=== PATIENT | male | born 1955 | race Caucasian/White ===

== ENCOUNTER 2019-05-09 18:11 | Inpatient (IN) | payer OTHER ==
[2019-05-09] MEDS ORDERED: ACETAMINOPHEN TAB 500 MG TAB PO STA (18:49)
[2019-05-09] MEDS ORDERED: KETOROLAC 30 MG/ML 1 ML VIAL IVP STA (18:49)
[2019-05-09] MEDS ORDERED: SODIUM CHLORIDE 0.9% 1,000 ML IV ONE (18:49)
[2019-05-09] MEDS ORDERED: LIDOCAINE 1% INJ 10MG/ML (20 ML MDV) SQ ONE (18:50)
--- NOTE | 2019-05-09 18:57 | ED ---
Skin/Abscess/FB HPI - General Chief complaint: Skin/Abscess/Foreign Body Stated complaint: Hand swollen Time Seen by Provider: 05/09/19 18:38 Source: patient Mode of arrival: ambulatory Limitations: no limitations - History of Present Illness Initial comments: 63-year-old male patient presents to the emergency department today for evaluation of infection and abscess to the left hand. Patient states 2 days ago he had a small white pimple on the dorsal aspect of his left middle finger. Patient states that he popped it and squeezed out a small amount of pus. Patient states the next day the hand swelled up, turned red, and became very painful. Denies any known fever or chills. States that today the redness has increased to include his left wrist. He denies any history of similar symptoms. States he does have diabetes but he controls this with diet. Denies any other areas of infection. Denies any difficulty with range of motion of the hand. Patient denies any recent rash, shortness breath, chest pain, abdominal pain, nausea, vomiting, diarrhea, constipation, back pain, numbness, tingling, dizziness, weakness, hematuria, dysuria, urinary urgency, urinary frequency, headache, visual changes, or any other complaints. - Related Data Allergies Allergy/AdvReac Type Severity Reaction Status Date / Time No Known Allergies Allergy Verified 05/09/19 18:19 Review of Systems ROS Statement: Those systems with pertinent positive or pertinent negative responses have been documented in the HPI. ROS Other: All systems not noted in ROS Statement are negative. Past Medical History Past Medical History: Diabetes Mellitus History of Any Multi-Drug Resistant Organisms: None Reported Past Surgical History: No Surgical Hx Reported Past Psychological History: No Psychological Hx Reported Smoking Status: Former smoker Past Alcohol Use History: Occasional Past Drug Use History: None Reported General Exam Limitations: no limitations General appearance: alert, in no apparent distress, other (This is a well- developed, well-nourished adult male patient in no acute distress. Vital signs upon presentation are temperature 100.2F oral, pulse 127, respirations 22, blood pressure 168/95, pulse ox 97% on room air.) Eye exam: Present: normal appearance, PERRL, EOMI. Absent: scleral icterus, conjunctival injection, periorbital swelling ENT exam: Present: normal exam, normal oropharynx, mucous membranes moist Respiratory exam: Present: normal lung sounds bilaterally. Absent: respiratory distress, wheezes, rales, rhonchi, stridor Cardiovascular Exam: Present: normal rhythm, tachycardia, normal heart sounds. Absent: systolic murmur, diastolic murmur, rubs, gallop, clicks GI/Abdominal exam: Present: soft, normal bowel sounds. Absent: distended, tenderness, guarding, rebound, rigid Extremities exam: Present: full ROM, tenderness (proximal aspect of the left middle finger), normal capillary refill, other (There is soft tissue swelling, erythema noted over the dorsal aspect of the left hand extending up onto the wr ist. There does appear to be streaking to about midway along the radial aspect of the forearm). Absent: pedal edema, joint swelling, calf tenderness Neurological exam: Present: alert, oriented X3, CN II-XII intact Psychiatric exam: Present: normal affect, normal mood Skin exam: Present: warm, dry, intact, normal color. Absent: rash Course Vital Signs 05/09/19 05/09/19 18:16 19:00 Temperature 98.4 F 100.2 F H Pulse Rate 127 H Respiratory 22 Rate Blood Pressure 168/95 O2 Sat by Pulse 97 Oximetry Procedures - Incision & Drainage Consent Obtained: verbal consent Indication: abcess Site: hand (Left middle finger) Size (cm): 2 Anesthetic Used: lidocaine 1% Amount (mLs): 1 I&D Cleaning Method: Betadine Scalpel Used: #11 I&D Drainage Obtained: Pus, Blood Culture Obtained?: Yes Patient Tolerated Procedure: well, no complications Medical Decision Making - Medical Decision Making 63-year-old male patient presents to the emergency department today for evaluation of abscess and swelling of the left hand. Physical examination reveals a 2 cm abscess to the left middle finger with significant soft tissue swelling, cellulitis over the dorsal hand and wrist with streaking up the arm. He is febrile 100.2F oral. White blood cell count was normal. Lactic acid elevated at 2.8. Patient's blood sugar elevated at 434. Did perform incision and drainage of the left finger, I did culture purulent drainage. X-ray was negative for evidence of osteomyelitis. Patient states he is able to control his diabetes with diet, does not currently take medications. Given severity of infection, location of infection, and elevated sugar we will admit to the hospital for IV antibiotics and blood sugar management. - Lab Data Result diagrams: 12/25/19 19:00 05/09/19 19:00 Lab Results 05/09/19 05/09/19 05/09/19 Range/Units 19:00 19:00 19:00 WBC 8.7 (3.8-10.6) k/uL RBC 4.83 (4.30-5.90) m/uL Hgb 15.0 (13.0-17.5) gm/dL Hct 44.2 (39.0-53.0) % MCV 91.5 (80.0-100.0) fL MCH 31.1 (25.0-35.0) pg MCHC 34.0 (31.0-37.0) g/dL RDW 12.9 (11.5-15.5) % Plt Count 190 (150-450) k/uL Neutrophils % 77 % Lymphocytes % 13 % Monocytes % 6 % Eosinophils % 2 % Basophils % 1 % Neutrophils # 6.7 (1.3-7.7) k/uL Lymphocytes # 1.1 (1.0-4.8) k/uL Monocytes # 0.5 (0-1.0) k/uL Eosinophils # 0.2 (0-0.7) k/uL Basophils # 0.1 (0-0.2) k/uL Sodium 137 (137-145) mmol/L Potassium 4.0 (3.5-5.1) mmol/L Chloride 100 (98-107) mmol/L Carbon Dioxide 22 (22-30) mmol/L Anion Gap 15 mmol/L BUN 15 (9-20) mg/dL Creatinine 0.84 (0.66-1.25) mg/dL Est GFR (CKD-EPI)AfAm >90 (>60 ml/min/1.73 sqM) Est GFR (CKD-EPI)NonAf >90 (>60 ml/min/1.73 sqM) Glucose 431 H (74-99) mg/dL Plasma Lactic Acid Jarett 2.8 H* (0.7-2.0) mmol/L Calcium 10.2 (8.4-10.2) mg/dL Total Bilirubin 0.7 (0.2-1.3) mg/dL AST 17 (17-59) U/L ALT 17 (4-49) U/L Alkaline Phosphatase 115 (38-126) U/L Total Protein 7.2 (6.3-8.2) g/dL Albumin 4.5 (3.5-5.0) g/dL - Radiology Data Radiology results: report reviewed, image reviewed 3 Views of the left hand are obtained. Impression by Dr. Nieto shows soft tissue swelling. No fracture. No sign of osteomyelitis. Linear metallic 3 mm foreign body noted adjacent to the first metacarpal. Disposition Clinical Impression: Cellulitis of left hand, Abscess of left middle finger Disposition: ADMITTED IP TO THIS [facility] Condition: Serious Referrals: None,Stated [Primary Care Provider] - 1-2 days Decision to Admit Reason: Admit from EC Decision Date: 05/09/19 Decision Time: 21:07
[2019-05-09] MEDS ORDERED: CLINDAMYCIN 600 MG in DEXTROSE 5% IN WATER 50 ML IVPB STA ×2 (19:13)
[2019-05-09 19:31] LABS: Basophils # (A) 0.1 k/uL (0-0.2); Basophils % (A) 1 %; Eosinophils # (A) 0.2 k/uL (0-0.7); Eosinophils % (A) 2 %; HCT 44.2 % (39.0-53.0); Lymphocytes # (A) 1.1 k/uL (1.0-4.8); Lymphocytes % (A) 13 %; MCH 31.1 pg (25.0-35.0); MCV 91.5 fL (80.0-100.0); Mean Platelet Volume 8.2; Monocytes # (A) 0.5 k/uL (0-1.0); Monocytes % (A) 6 %; Neutrophils # (A) 6.7 k/uL (1.3-7.7); Neutrophils % (A) 77 %; Platelet Count 190 k/uL (150-450); RBC 4.83 m/uL (4.30-5.90); RDW 12.9 % (11.5-15.5); WBC 8.7 k/uL (3.8-10.6)
--- NOTE | 2019-05-09 19:40 | XR ---
EXAMINATION TYPE: XR hand complete LT DATE OF EXAM: 05/09/2019 COMPARISON: NONE HISTORY: Middle finger infection TECHNIQUE: 3 views FINDINGS: There is soft tissue swelling around the index finger and middle finger. There is also mini mal swelling of the ring finger. I see no fracture nor dislocation. There is soft tissue swelling on the dorsum of the hand. I see no focal bone destruction. IMPRESSION: Soft tissue swelling. No fracture. No sign of osteomyelitis. Linear metallic 3 mm foreign body noted adjacent to the first metacarpal.
[2019-05-09 19:44] LABS: ALT 17 U/L (4-49); AST 17 U/L (17-59); African American GFR (CKD) >90 (>60 ml/min/1.73 sqM); Albumin 4.5 g/dL (3.5-5.0); Alkaline Phosphatase 115 U/L (38-126); Anion Gap 15 mmol/L; Blood Urea Nitrogen 15 mg/dL (9-20); Calcium 10.2 mg/dL (8.4-10.2); Carbon Dioxide 22 mmol/L (22-30); Chloride 100 mmol/L (98-107); Glucose 431 mg/dL (74-99); Non-African American GFR(CKD) >90 (>60 ml/min/1.73 sqM); Sodium 137 mmol/L (137-145); Total Bilirubin 0.7 mg/dL (0.2-1.3); Total Protein 7.2 g/dL (6.3-8.2)
[2019-05-09] MEDS ORDERED: SODIUM CHLORIDE 0.9% 500 ML 500 ML IV ONE (19:57)
[2019-05-09] MEDS ORDERED: INSULIN ASPART (NovoLOG) 100 UNIT/ML VIAL SQ STA (19:57)
[2019-05-09] MEDS ORDERED: ACETAMINOPHEN TAB 325 MG TAB PO PRN (21:02)
[2019-05-09] MEDS ORDERED: NALOXONE 0.4 MG/ML 1 ML VIAL IV PRN (21:02)
[2019-05-09] MEDS: SODIUM CHLORIDE 0.9% 1,000 ML IV SCH (22:40)
[2019-05-10] MEDS: CLINDAMYCIN 600 MG in DEXTROSE 5% IN WATER 50 ML IVPB SCH ×4 (02:59→11:55)
[2019-05-10 06:55] LABS: Glucose,Whole Blood 250 mg/dL (75-99)
[2019-05-10 07:41] LABS: Basophils # (A) 0.1 k/uL (0-0.2); Basophils % (A) 1 %; Eosinophils # (A) 0.2 k/uL (0-0.7); Eosinophils % (A) 3 %; Lymphocytes % (A) 16 %; MCH 30.2 pg (25.0-35.0); MCHC 32.6 g/dL (31.0-37.0); MCV 92.6 fL (80.0-100.0); Mean Platelet Volume 7.9; Monocytes # (A) 0.5 k/uL (0-1.0); Monocytes % (A) 7 %; Neutrophils # (A) 4.5 k/uL (1.3-7.7); Neutrophils % (A) 71 %; Platelet Count 163 k/uL (150-450); RBC 4.65 m/uL (4.30-5.90); WBC 6.4 k/uL (3.8-10.6)
[2019-05-10] MEDS: KETOROLAC 30 MG/ML 1 ML VIAL IVP PRN ×2 (08:10→16:26)
[2019-05-10] MEDS: INSULIN ASPART (NovoLOG) 100 UNIT/ML VIAL SQ SCH ×4 (08:10→20:45)
[2019-05-10] MEDS: SODIUM CHLORIDE 0.9% 1,000 ML IV SCH (10:18)
[2019-05-10 11:12] LABS: Glucose,Whole Blood 259 mg/dL (75-99)
[2019-05-10] MEDS ORDERED: VANCOMYCIN IV PER PHARMACY 1 EACH MISC MISCELLANE PRN (12:50)
[2019-05-10] MEDS ORDERED: VANCOMYCIN 1,750 MG in SODIUM CHLORIDE 0.9% 500 ML 500 ML IVPB ONE (14:00)
--- NOTE | 2019-05-10 15:40 | P.HPIM ---
History of Present Illness 63-year-old is negative and was department with infection of the left hand the left middle finger. Patient has a wound on ulcer in that area with pus draining out of it and patient had fever reaching the left forearm yesterday patient has significant swelling in the left hand with redness local is of temperature in the left middle finger. Patient had x-ray which showed x-ray of the left hand showed an incidental finding of a 3 mm metallic linear fragment and the first metatarsal area but the patient's infection is in the middle finger. I cannot completely rule out abscess because of which I'm consulting the orthopedic surg elías. Patient's antiemetics will be switched from clindamycin to vancomycin infectious disease will be consulted as well. Patient is complaining of pain severe the abscess site area Review of Systems REVIEW OF SYSTEMS: CONSTITUTIONAL: No fever, no malaise, no fatigue. HEENT: No recent visual problems or hearing problems. Denied any sore throat. CARDIOVASCULAR: No chest pain, orthopnea, PND, no palpitations, no syncope. PULMONARY: No shortness of breath, no cough, no hemoptysis. GASTROINTESTINAL: No diarrhea, no nausea, no vomiting, no abdominal pain. NEUROLOGICAL: No headaches, no weakness, no numbness. HEMATOLOGICAL: Denies any bleeding or petechiae. GENITOURINARY: Denies any burning micturition, frequency, or urgency. MUSCULOSKELETAL/RHEUMATOLOGICAL: As mentioned in the history ENDOCRINE: Denies any polyuria or polydipsia. The rest of the 14-point review of systems is negative. Past Medical History Past Medical History: Diabetes Mellitus History of Any Multi-Drug Resistant Organisms: None Reported Past Surgical History: Joint Replacement Past Anesthesia/Blood Transfusion Reactions: No Reported Reaction Past Psychological History: No Psychological Hx Reported Smoking Status: Former smoker Past Alcohol Use History: Occasional Past Drug Use History: None Reported - Past Family History Mother Family Medical History: Diabetes Mellitus, Hypertension Father Family Medical History: Diabetes Mellitus, Hypertension Medications and Allergies Home Medications Medication Instructions Recorded Confirmed Type Nicotine Polacrilex [Nicorette] 2 mg BC Q2H PRN 05/09/19 05/09/19 History Allergies Allergy/AdvReac Type Severity Reaction Status Date / Time No Known Allergies Allergy Verified 05/09/19 21:53 Physical Exam Vitals: Vital Signs Temp Pulse Pulse Resp BP BP Pulse Ox 05/10/19 14:28 97.6 F 97 17 191/109 98 05/10/19 07:00 97.6 F 69 17 169/78 94 L 05/10/19 03:03 98.7 F 106 H 18 145/79 96 05/09/19 22:30 118 H 05/09/19 22:02 98.3 F 118 H 18 159/91 97 05/09/19 21:48 97.7 F 05/09/19 21:44 113 H 20 159/85 93 L 05/09/19 19:00 100.2 F H 05/09/19 18:16 98.4 F 127 H 22 168/95 97 Intake and Output 05/10/19 05/10/19 05/10/19 06:59 14:59 22:59 Intake Total 650 Balance 650 Intake: Intake, IV Titration 650 Amount Clindamycin 600 mg In 50 Dextrose 5% in Water 50 ml @ 50 mls/hr IVPB Q8H MAURICIO Rx#:[id number] Sodium Chloride 0.9% 1, 600 000 ml @ 75 mls/hr IV . [id number] MAURICIO Rx#:[id number] Other: # Voids 2 3 PHYSICAL EXAMINATION: GENERAL: The patient is alert and oriented x3, not in any acute distress. Well developed, well nourished. HEENT: Pupils are round and equally reacting to light. EOMI. No scleral icterus. No conjunctival pallor. Normocephalic, atraumatic. No pharyngeal erythema. No thyromegaly. CARDIOVASCULAR: S1 and S2 present. No murmurs, rubs, or gallops. PULMONARY: Chest is clear to auscultation, no wheezing or crackles. ABDOMEN: Soft, nontender, nondistended, normoactive bowel sounds. No palpable organomegaly. MUSCULOSKELETAL: No joint swelling or deformity. EXTREMITIES: No cyanosis, clubbing, or pedal edema. Patient has a swelling of the left hand significant swelling of the left middle finger with an ulcer that was noted in between first and second interphalangeal joints I cannot rule out abscess. I did not see any streaking today but apparently this was present yesterday. NEUROLOGICAL: Gross neurological examination did not reveal any focal deficits. SKIN: No rashes. Results CBC & Chem 7: 05/10/19 07:18 12/25/19 19:00 Labs: Abnormal Lab Results - Last 24 Hours (Table) 05/09/19 05/09/19 05/10/19 Range/Units 19:00 19:00 06:52 Glucose 431 H (74-99) mg/dL POC Glucose (mg/dL) 250 H (75-99) mg/dL Plasma Lactic Acid Jarett 2.8 H* (0.7-2.0) mmol/L 05/10/19 Range/Units 11:10 Glucose (74-99) mg/dL POC Glucose (mg/dL) 259 H (75-99) mg/dL Plasma Lactic Acid Jarett (0.7-2.0) mmol/L Microbiology - Last 24 Hours (Table) 05/09/19 19:20 Gram Stain - Preliminary Hand - Left Wound Culture - Preliminary 05/09/19 20:00 Gram Stain - Preliminary Hand - Left Wound Culture - Preliminary Thrombosis Risk Factor Assmnt - Choose All That Apply Any of the Below Risk Factors Present?: Yes Each Factor Represents 1 point: Obesity (BMI >25) Other Risk Factors: Yes Each Risk Factor Represents 2 Points: Age 61-74 years Other congenital or acquired thrombophilia - If yes, enter type in comment: No Thrombosis Risk Factor Assessment Total Risk Factor Score: 3 Thrombosis Risk Factor Assessment Level: Moderate Risk Assessment and Plan Plan: -Cellulitis and abscess of the left hand middle finger: Patient will be switched to vancomycin IV fluids will be continued use Toradol for pain -Sepsis secondary to above -Elevated blood sugars patient is not on any medications for diabetes we'll obtain hemoglobin A1c will use sliding scale here
--- NOTE | 2019-05-10 16:38 | P.CNOR ---
<Ashlyn Linda Diamond - Last Filed: 05/10/19 16:39> History of Present Illness - HPI Consult date: 05/10/19 Consult reason: other (Left middle finger infection) History of present illness: The patient is a 63-year-old male who presented to the emergency department last night with increased swelling and redness to the left middle finger. He has a history of diet controlled diabetes and is a former smoker. He states that on Tuesday night he popped a pimple on the same finger. The pimple was on the dorsal aspect of the left middle finger at the proximal phalanx level. The next morning he noticed increased redness and swelling to the finger around the pimple site and he noticed increased redness going up his hand into his forearm. The patient states he was not feeling ill but did have a fever upon coming to the ER last night. The redness and swelling continued and he went to the emergency department for further evaluation. In the ER, the patient's finger was opened at the bedside and a culture was taken. He was admitted for IV an tibiotics and further evaluation by orthopedic hand surgery. A consult for infectious disease is also entered. Today, the patient states that his pain is controlled. The finger is only painful when he attempts range of motion and pushes on the area directly. He does have limited range of motion due to swelling in the finger. The patient states that the finger has only mildly improved since admission yesterday. Cultures are pending and he is currently on Vancomycin. Review of Systems Constitutional: Reports fever, Denies chills, Denies fatigue Cardiovascular: Denies chest pain, Denies shortness of breath Respiratory: Denies cough Gastrointestinal: Denies diarrhea, Denies nausea, Denies vomiting Musculoskeletal: left: hand pain, hand stiffness, hand swelling Past Medical History Past Medical History: Diabetes Mellitus History of Any Multi-Drug Resistant Organisms: None Reported Past Surgical History: Joint Replacement Past Anesthesia/Blood Transfusion Reactions: No Reported Reaction Past Psychological History: No Psychological Hx Reported Smoking Status: Former smoker Past Alcohol Use History: Occasional Past Drug Use History: None Reported - Past Family History Mother Family Medical History: Diabetes Mellitus, Hypertension Father Family Medical History: Diabetes Mellitus, Hypertension Medications and Allergies Home Medications Medication Instructions Recorded Confirmed Type Nicotine Polacrilex [Nicorette] 2 mg BC Q2H PRN 05/09/19 05/09/19 History Allergies Allergy/AdvReac Type Severity Reaction Status Date / Time No Known Allergies Allergy Verified 05/09/19 21:53 Physical Examination The patient is a 63-year-old male who is in no acute distress. He is alert and oriented 3. Exam of the left hand reveals swelling and erythema to the left middle finger. There is swelling in the dorsal distal aspect of the hand but it does not extend further. No proximal red streaking is present. There is pain to palpation to the proximal phalanx level of the left middle finger. No tenderness along the flexor tendon sheath. No active drainage can be expressed from the dorsal wound at this time. There is limited range of motion of the PIP joint of the left little finger, 60 of passive flexion with full extension. Dupuytren's nodules are present in the palm of the hand, no contractures noted. No neurological deficits are present. Circulatory status is intact. Capillary refill less than 2 seconds. Results - Labs Labs: Abnormal Lab Results - Last 24 Hours (Table) 05/09/19 05/09/19 05/10/19 Range/Units 19:00 19:00 06:52 Glucose 431 H (74-99) mg/dL POC Glucose (mg/dL) 250 H (75-99) mg/dL Plasma Lactic Acid Jarett 2.8 H* (0.7-2.0) mmol/L 05/10/19 Range/Units 11:10 Glucose (74-99) mg/dL POC Glucose (mg/dL) 259 H (75-99) mg/dL Plasma Lactic Acid Jarett (0.7-2.0) mmol/L Microbiology - Last 24 Hours (Table) 05/09/19 19:20 Gram Stain - Preliminary Hand - Left Wound Culture - Preliminary 05/09/19 20:00 Gram Stain - Preliminary Hand - Left Wound Culture - Preliminary H & H 05/09/19 05/10/19 Range/Units 19:00 07:18 Hgb 15.0 14.0 (13.0-17.5) gm/dL Hct 44.2 43.0 (39.0-53.0) % Result Diagrams: 05/10/19 07:18 05/09/19 19:00 - Diagnostic results Wrist/Hand x-ray: image reviewed (2 views of the left hand dated 05/09/2019 reveals soft tissue swelling. No bony destruction or osteomyelitis present.) Assessment and Plan (1) Diabetes mellitus Current Visit: Yes Status: Acute Code(s): E11.9 - TYPE 2 DIABETES MELLITUS WITHOUT COMPLICATIONS SNOMED Code(s): 92549611 (2) Abscess of left middle finger Current Visit: Yes Status: Acute Code(s): L02.512 - CUTANEOUS ABSCESS OF LEFT HAND SNOMED Code(s): 45394085 (3) Cellulitis of left hand Current Visit: Yes Status: Acute Code(s): L03.114 - CELLULITIS OF LEFT UPPER LIMB SNOMED Code(s): 37438086 Plan: The clinical and diagnostic findings were discussed with the patient and family at the bedside. Continue pain control as needed. Continue vancomycin until seen by infectious disease. Await culture results. I encouraged gentle range of motion of the finger as tolerated to prevent stiffness. Further incision and drainage may be needed if the finger does not improve with IV antibiotics. The patient will be examined by Dr. Foster as well and further recommendations will follow. <Bhavesh Foster - Last Filed: 05/11/19 07:27> Results - Labs Labs: Abnormal Lab Results - Last 24 Hours (Table) 05/10/19 05/10/19 05/10/19 Range/Units 11:10 16:39 20:27 POC Glucose (mg/dL) 259 H 213 H 214 H (75-99) mg/dL Microbiology - Last 24 Hours (Table) 05/09/19 19:00 Blood Culture - Preliminary Blood No Growth after 24 hours 05/09/19 20:00 Gram Stain - Preliminary Hand - Left Wound Culture - Preliminary Presumptive Staph aureus 05/09/19 19:20 Gram Stain - Preliminary Hand - Left Wound Culture - Preliminary H & H 05/09/19 05/10/19 Range/Units 19:00 07:18 Hgb 15.0 14.0 (13.0-17.5) gm/dL Hct 44.2 43.0 (39.0-53.0) % Result Diagrams: 05/10/19 07:18 05/09/19 19:00 Assessment and Plan Plan: Discussed with BHANU Linda and agree with above. Patient was subsequently seen and examined by myself as well. S: He states that this began 2 days ago when he popped a pimple on the back of his finger. His reports that the finger progressively worsened, to the point where there was swelling and redness going up his arm. They feel that it has improved since admission. He says that there is not very much pain. O: Moderate focal edema over the middle phalanx of the left middle finger. This extends across the dorsum of the hand. The dorsal skin over the middle phalanx is friable with some small puncture wounds noted. Mild surrounding erythema. There is fullness in the subcutaneous tissues but no discrete pocket of fluctuance. Minimal tenderness to palpation. He is able to perform active flexion and extension with minimal discomfort, though his range of motion is limited due to the swelling. No tenderness along the flexor sheath or extensor tendon. A: 1. Left middle finger cellulitis 2. Uncontrolled diabetes mellitus P: I discussed the clinical findings in detail with the patient and his . We discussed a variety treatment options, including continued observation, bedside I&D versus formal surgical debridement. Based on its current appearance and his exam, I recommended a period of observation. We will begin dilute saline and Betadine soaks and I encouraged him to continue range of motion. If this fails to improve with IV antibiotics, we may consider debridement. NPO after midnight -I will reevaluate this in the morning. Bhavesh Foster D.O. [facility]
[2019-05-10 16:40] LABS: Glucose,Whole Blood 213 mg/dL (75-99)
[2019-05-10 20:29] LABS: Glucose,Whole Blood 214 mg/dL (75-99)
[2019-05-10] MEDS: FAMOTIDINE 20 MG TAB PO SCH (20:46)
[2019-05-11] MEDS: VANCOMYCIN 1,750 MG in SODIUM CHLORIDE 0.9% 500 ML 500 ML IVPB SCH ×4 (00:24→23:02)
[2019-05-11] MEDS: KETOROLAC 30 MG/ML 1 ML VIAL IVP PRN ×3 (03:00→23:01)
[2019-05-11] MEDS: SODIUM CHLORIDE 0.9% 1,000 ML IV SCH ×2 (03:10→15:05)
--- NOTE | 2019-05-11 06:12 | CONS ---
CONSULTATION DATE OF SERVICE: 05/10/2019 REASON FOR CONSULTATION: Left middle finger abscess and cellulitis. HISTORY OF PRESENT ILLNESS: The patient is a 63 -year-old male presenting to the ER at [facility] yesterday with chief complaints of left middle finger pain, swelling, redness along with the fever. The patient mentioned that he noticed a pimple on his left middle finger dorsum aspect that he tried to palpate on Tuesday. The next morning, that is May 08, he woke up and he did have significant swelling and redness of his left index finger. The patient tried to manage it at home. However, did have worsening pain, swelling, redness that prompted him to visit the hospital last evening. At the time of arrival to the ER, the patient was complaining of pain to be almost 10 out of 10 in severity, throbbing in nature and no radiation. The patient was complaining of fever and chills with a temperature of 101 degrees Fahrenheit at home. On arrival to the ER, the patient did have of 100.2. He did have slight tachycardia, though his white count was normal. The patient did have a attempt at I and D by the ER physician. Cultures had been obtained. Blood culture was obtained and the patient was started on vancomycin. Infectious Disease was consulted for further recommendation regarding antibiotic therapy. REVIEW OF SYSTEMS: CONSTITUTIONAL: Positive for weakness along with the fever. EYES: No complaint. ENT: No complaint. RESPIRATORY: No complaint. CARDIOVASCULAR: No complaint. GENITOURINARY: No complaint. GASTROINTESTINAL: No complaint. MUSCULOSKELETAL: As per HPI. INTEGUMENTARY: As per HPI. PSYCHOLOGICAL: No complaint. ENDOCRINE: No complaint. NEUROLOGIC: No complaint. PAST MEDICAL HISTORY: Diabetes mellitus. PAST SURGICAL HISTORY: Joint replacement. SOCIAL HISTORY: Remote history of smoking. Occasionally drinks. No drug use. FAMILY HISTORY: Both parents with a history of hypertension and diabetes mellitus. ALLERGIES: No known drug allergies. MEDICATIONS: Medications include the patient is currently on vancomycin 1750 mg q.8 hours. He is on IV fluids, Narcan, Toradol, NovoLog, Pepcid, and Tylenol. PHYSICAL EXAMINATION: On examination, blood pressure is 166/90 with a pulse of 90, temperature 97.7. He is 99% on room air. General description is a middle-aged male up in the bed in no distress. No tachypnea or accessory muscle of respiration use. HEENT: Examination shows no pallor or scleral icterus. Oral mucous membrane is moist. No pharyngeal erythema or thrush. NECK: Trachea central. No thyromegaly. LUNGS: Unlabored breathing, clear to auscultation anteriorly. No wheeze or crackle. HEART: S1, S2. Regular rate and rhythm. No added sounds. ABDOMEN: Soft, no tenderness. No rigidity, EXTREMITIES: No edema of feet. EXAMINATION OF THE LEFT HAND: Middle finger dorsum aspect did have an area of swelling and redness with some purulent drainage and warm to touch. NEUROLOGICAL: Patient is awake, alert, oriented x3. Mood and Affect normal. LABS: Hemoglobin is 14, white count 6.4 with a BUN of 15, creatinine 0.84. Lactic acid was 2.8, repeat is 1.2. Liver enzymes are normal. Wound culture reveals Staph aureus. Blood culture has been negative so far. DIAGNOSTIC IMPRESSION AND PLAN: Patient admitted to the hospital with left middle finger dorsum aspect abscess with secondary cellulitis likely from a gram-positive skin kenyetta with wound culture already showing Staph aureus. We will need to cover for the methicillin-resistant Staphylococcus aureus to be the likely pathogen. PLAN: 1. Vancomycin, pharmacy to dose, target of 15, while watching his kidney function closely. 2. Dry protective dressing to the area and may benefit from further surgical drainage by Orthopedics. 3. We will follow up on clinical condition and culture to further adjust medication if needed. Thank you for this consultation. Will follow this patient along with you. MMODL / IJN: [id number] /
--- NOTE | 2019-05-11 07:34 | P.PN ---
Subjective Progress Note Date: 05/11/19 The patient states the pain is not substantially changed. He has only soaked it once since last night. He did try moving the finger more after soaking it and felt increased pain. Objective - Vital Signs Vital signs: Vital Signs Temp 97.9 F 05/11/19 02:23 Pulse 90 05/11/19 02:23 Resp 15 05/11/19 02:23 BP 172/95 05/11/19 02:23 Pulse Ox 96 05/11/19 02:23 Intake & Output 05/10/19 05/11/19 05/11/19 18:59 06:59 18:59 Other: # Voids 3 6 - Exam Interval increase in the edema around the middle phalanx, extending along the ulnar aspect of the digit and into the palm. The skin layers ulnarly have (says the appearance of a flat blister) but this could also represent a developing abscess. No tenderness in the palm. He is still able to perform limited active flexion and extension, though his range of motion is more limited. - Labs CBC & Chem 7: 05/10/19 07:18 05/09/19 19:00 Labs: Abnormal Lab Results - Last 24 Hours (Table) 05/10/19 05/10/19 05/10/19 Range/Units 11:10 16:39 20:27 POC Glucose (mg/dL) 259 H 213 H 214 H (75-99) mg/dL Microbiology - Last 24 Hours (Table) 05/09/19 19:00 Blood Culture - Preliminary Blood No Growth after 24 hours 05/09/19 20:00 Gram Stain - Preliminary Hand - Left Wound Culture - Preliminary Presumptive Staph aureus 05/09/19 19:20 Gram Stain - Preliminary Hand - Left Wound Culture - Preliminary Assessment and Plan Assessment: 1. Left middle finger cellulitis - possible evolving abscess 2. Uncontrolled diabetes mellitus Plan: The clinical appearance of the finger has worsened. We again reviewed treatment options. I recommended proceeding with formal surgical debridement. Risks and benefits were discussed; he expressed understanding and is in agreement to proceed with surgery. Continue saline/Betadine soaks. We will keep him NPO and plan for surgery this afternoon.
[2019-05-11 07:35] LABS: Glucose,Whole Blood 196 mg/dL (75-99)
[2019-05-11] MEDS: FAMOTIDINE 20 MG TAB PO SCH ×2 (08:19→19:09)
[2019-05-11] MEDS: INSULIN ASPART (NovoLOG) 100 UNIT/ML VIAL SQ SCH ×4 (08:23→19:09)
[2019-05-11 11:52] LABS: Glucose,Whole Blood 158 mg/dL (75-99)
[2019-05-11 13:37] LABS: Hemoglobin A1C 10.5 % (4.0-6.0)
--- NOTE | 2019-05-11 14:42 | P.PN ---
Subjective Progress Note Date: 05/11/19 Principal diagnosis: 63-year-old is negative and was department with infection of the left hand the left middle finger. Patient has a wound on ulcer in that area with pus draining out of it and patient had fever reaching the left forearm yesterday patient has significant swelling in the left hand with redness local is of temperature in the left middle finger. Patient had x-ray which showed x-ray of the left hand showed an incidental finding of a 3 mm metallic linear fragment and the first metatarsal area but the patient's infection is in the middle finger. I cannot completely rule out abscess because of which I'm consulting the orthopedic surgery. Patient's antiemetics will be switched from clindamycin to vancomycin infectious disease will be consulted as well. Patient is complaining of pain severe the abscess site area 05/11/2019 Patient is sitting up in the chair in no acute distress. Patient is awaiting to undergo debridement with Dr. Marquez this afternoon of the left middle finger. The swelling, redness, pain has intensified per the patient. He has been nothing by mouth since midnight and is quite hungry. Patient states that he has a mild headache due to lack of caffeine as he normally drinks coffee every day. Currently patient denies any chest pain, shortness of breath, or palpitations. Patient is afebrile. Patient denies any nausea or vomiting at this time. Infectious disease is following. Patient is currently on IV vancomycin and will continue at this time. Preliminary wound culture showing presumptive Staphylococcus aureus. Objective - Vital Signs Vital signs: Vital Signs Temp 97.6 F 05/11/19 07:00 Pulse 90 05/11/19 07:00 Resp 17 05/11/19 07:00 BP 177/102 05/11/19 07:00 Pulse Ox 98 05/11/19 07:00 Intake & Output 05/10/19 05/11/19 05/11/19 18:59 06:59 18:59 Other: # Voids 3 6 - Exam GENERAL: The patient is alert and oriented x3, not in any acute distress. Well developed, well nourished. HEENT: Pupils are round and equally reacting to light. EOMI. No scleral icterus. No conjunctival pallor. Normocephalic, atraumatic. No pharyngeal erythema. No thyromegaly. CARDIOVASCULAR: S1 and S2 present. No murmurs, rubs, or gallops. PULMONARY: Chest is clear to auscultation, no wheezing or crackles. ABDOMEN: Soft, nontender, nondistended, normoactive bowel sounds. No palpable organomegaly. MUSCULOSKELETAL: No joint swelling or deformity. EXTREMITIES: No cyanosis, clubbing, or pedal edema. Patient has a swelling of the left hand significant swelling of the left middle finger with an ulcer that was noted in between first and second interphalangeal joints I cannot rule out a bscess. I did not see any streaking today but apparently this was present yesterday. Redness and swelling of the left middle finger has worsened since yesterday. NEUROLOGICAL: Gross neurological examination did not reveal any focal deficits. SKIN: No rashes. - Labs CBC & Chem 7: 05/10/19 07:18 05/09/19 19:00 Labs: Abnormal Lab Results - Last 24 Hours (Table) 05/10/19 05/10/19 05/10/19 Range/Units 07:18 16:39 20:27 POC Glucose (mg/dL) 213 H 214 H (75-99) mg/dL Hemoglobin A1c 10.5 H (4.0-6.0) % 05/11/19 05/11/19 Range/Units 07:34 11:51 POC Glucose (mg/dL) 196 H 158 H (75-99) mg/dL Hemoglobin A1c (4.0-6.0) % Microbiology - Last 24 Hours (Table) 05/09/19 19:00 Blood Culture - Preliminary Blood No Growth after 24 hours 05/09/19 20:00 Gram Stain - Preliminary Hand - Left Wound Culture - Preliminary Presumptive Staph aureus Assessment and Plan Assessment: -Cellulitis and abscess of the left hand middle finger: Patient will be switched to vancomycin IV fluids will be continued use Toradol for pain. Patient is undergoing debridement of the left middle finger with Dr. Marquez this afternoon -Sepsis secondary to above -Elevated blood sugars patient is not on any medications for diabetes we'll obtain hemoglobin A1c will use sliding scale here. Hemoglobin A1c is 10.5. We'll continue with sliding scale at this time. Patient will need to follow-up with primary care provider in the outpatient setting upon discharge. -Hypertension; patient denies history of hypertension. Will continue to monitor vital signs closely.
[2019-05-11] MEDS ORDERED: IV FLUID CONTINUATION 1,000 ML IV ONE (15:15)
[2019-05-11] MEDS ORDERED: MIDAZOLAM 2 MG/2 ML VIAL ONE (15:26)
[2019-05-11] MEDS ORDERED: fentaNYL (PF) 50 MCG/ML 2 ML AMP ONE (15:26)
[2019-05-11] MEDS ORDERED: LIDOCAINE 1% INJ 10MG/ML (20 ML MDV) ONE (15:26)
[2019-05-11] MEDS ORDERED: PROPOFOL 10 MG/ML 20 ML VIAL IV ONE (15:26)
[2019-05-11] MEDS ORDERED: ONDANSETRON 4 MG/2 ML VIAL ONE (15:26)
[2019-05-11] MEDS ORDERED: SUCCINYLCHOLINE CHLORIDE 100 MG/5 ML SYR IV ONE (15:26)
[2019-05-11] MEDS ORDERED: BUPIVACAINE (PF) 0.5% 30 ML VIAL SQ ONE (16:27)
[2019-05-11] MEDS ORDERED: ONDANSETRON 4 MG/2 ML VIAL IVP PRN (17:01)
[2019-05-11] MEDS ORDERED: HYDROmorphone 0.5 MG/0.5 ML SYRINGE IVP PRN (17:01)
[2019-05-11] MEDS ORDERED: HYDROcodone/APAP 5-325MG 1 EACH TAB PO PRN (17:01)
[2019-05-11 17:05] LABS: Glucose,Whole Blood 154 mg/dL (75-99)
[2019-05-11 19:07] LABS: Glucose,Whole Blood 178 mg/dL (75-99)
[2019-05-12] MEDS: SODIUM CHLORIDE 0.9% 1,000 ML IV SCH ×2 (03:48→15:48)
[2019-05-12 06:50] LABS: Glucose,Whole Blood 168 mg/dL (75-99)
[2019-05-12] MEDS ORDERED: VANCOMYCIN TROUGH DUE 1 EACH MISC MISCELLANE ONE (07:00)
[2019-05-12] MEDS: VANCOMYCIN 1,750 MG in SODIUM CHLORIDE 0.9% 500 ML 500 ML IVPB SCH (07:35)
[2019-05-12] MEDS: INSULIN ASPART (NovoLOG) 100 UNIT/ML VIAL SQ SCH ×4 (07:35→21:20)
[2019-05-12 07:43] LABS: African American GFR (CKD) >90 (>60 ml/min/1.73 sqM); Non-African American GFR(CKD) >90 (>60 ml/min/1.73 sqM)
[2019-05-12] MEDS: FAMOTIDINE 20 MG TAB PO SCH ×2 (07:43→21:21)
[2019-05-12 11:46] LABS: Glucose,Whole Blood 209 mg/dL (75-99)
--- NOTE | 2019-05-12 13:21 | P.OP ---
Date of Procedure: 05/11/19 Preoperative Diagnosis: 1. Left middle finger abscess 2. Uncontrolled diabetes mellitus Postoperative Diagnosis: 1. Left middle finger abscess 2. Uncontrolled diabetes mellitus Procedure(s) Performed: Incision and drainage - left middle finger abscess Anesthesia: BROCK Surgeon: Bhavesh Foster Estimated Blood Loss (ml): 3 Pathology: other (Wound culture swab) Condition: stable Disposition: PACU Indications for Procedure: The patient is pleasant 63-year-old male who developed, what he thought, was a pimple on the back of his left middle finger. This progressively worsened and he came to the hospital. He was evaluated and diagnosed with cellulitis. This failed to improve with IV antibiotics and he appeared to be developing an abscess. The orthopedic service was consulted. Surgical debridement was recommended. Risks and benefits were reviewed including (but not limited to) the risks of bleeding, injury to tendons or neurovascular structures, persistent or recurrent infection, wound healing problems, stiffness, adhesions and possible need for additional surgery. The patient expressed understanding, willingness to accept these risks and wished to proceed with surgery. Consent forms were signed. The surgical site was confirmed and marked preoperatively. Operative Findings: Moderate gross pus in the subcutaneous tissues around the proximal phalanx. No appreciable extension into the flexor sheath or along the extensor tendon. Description of Procedure: The patient was brought to the operating suite by the anesthesia team and was positioned supine. All bony prominences were well-padded. General anesthesia was administered uneventfully. A tourniquet was placed on the operative limb, which was then prepped and draped in standard, sterile fashion. A time-out was performed, confirming patient identifiers, the operative side, site and the procedure to be performed: all team members expressed agreement. The limb was exsanguinated with gravity and the tourniquet was inflated. A gently curving dorsal incision was marked over the left middle finger proximal phalanx. The skin was sharply incised: abundant cloudy, purulent fluid was immediately encountered. A swab culture was obtained. The wound was explored with blunt, spreading dissection. Thickened, fibrinous exudative tissue was encountered above the extensor tendon and extending down the extensor expansion and lateral bands. The infection spread down the lateral recesses of each finger and up to the web spaces, more on the radial side. It did not seem to extend into the palm or flexor sheath. There is no obvious damage to the extensor tendon. A combination of sharp and mechanical debridement was used to resect infected and unhealthy tissue. The wound was copiously irrigated with normal saline using a bulb syringe. The surrounding soft tissues were mechanically debrided with a curette. The tourniquet was released after 16 minutes at 250 mmHg. Hemostasis was obtained with manual pressure and bipolar cautery but there was diffuse sanguinous drainage from the surrounding inflamed tissues. The incision was loosely closed over 2 vessel loop drains with interrupted 4-0 Prolene sutures. Local anesthetic without epinephrine was injected for postoperative pain control. A bulky sterile dressing of Adaptic, 4 x 4's, Ton and Cobmildred was applied. All sponge, needle and instrument counts were correct at the end of the case. The patient tolerated the procedure well and was taken to recovery in stable condition. The patient will be returned to the floor for continued monitoring and IV antibiotics, to be guided by intraoperative cultures.
[2019-05-12 13:29] VITALS: BMI 25.3
[2019-05-12] MEDS ORDERED: cloNIDine HCL 0.1 MG TAB PO PRN (16:17)
[2019-05-12 16:45] LABS: Glucose,Whole Blood 217 mg/dL (75-99)
[2019-05-12] MEDS: NICOTINE 14MG/24HR PATCH TRANSDERM SCH (17:06)
[2019-05-12] MEDS: LISINOPRIL 5 MG TAB PO SCH (17:10)
[2019-05-12] MEDS: metFORMIN 500 MG TAB PO SCH (17:10)
[2019-05-12] MEDS: METOPROLOL TARTRATE 25 MG TAB PO SCH (17:10)
--- NOTE | 2019-05-12 18:32 | PN ---
PROGRESS NOTE DATE OF SERVICE: 05/12/2019. REASON FOR FOLLOWUP VISIT: Left middle finger abscess MSSA. INTERVAL HISTORY: The patient is currently afebrile. The patient was taken to the OR and the patient is status post I and D of the left middle finger abscess. The patient tolerated the procedure. As of this morning, the patient's pain is currently controlled. Denies having any chest pain, shortness of breath, with cough, no nausea, vomiting, abdominal pain and no diarrhea. PHYSICAL EXAMINATION: Blood pressure 185/98 with a pulse of 90, temperature 98.5. He is 95% on room air. General description is a middle-aged male lying in bed in no distress. Respiratory system: Unlabored breathing. Clear to auscultation anteriorly. Heart S1, S2. Regular rate and rhythm. ABDOMEN: Soft. No tenderness. Left melendez is currently dressed up. No obvious drainage on the dressing. LABS: Creatinine 0.52. Wound culture with MSSA. Blood culture has been negative so far. DIAGNOSTIC IMPRESSION AND PLAN: Patient with left middle finger abscess status post drainage. Antibiotic will be switched over to cefazolin 2 g q.8 hours. We will monitor his clinical course closely, determine his discharge antibiotics and continue supportive care. MMODL / IJN: [id number] /
--- NOTE | 2019-05-12 19:44 | PN ---
PROGRESS NOTE DATE OF SERVICE: 05/12/2019 This 63-year-old gentleman who was admitted with significant cellulitis and abscess of the left hand middle finger, had incision and drainage by Dr. Foster from orthopedic surgery. The cultures are showing MSSA. Patient is on broad-spectrum IV antibiotics at this time. The patient also had uncontrolled diabetes mellitus type 2 with hyperglycemia. PAST MEDICAL HISTORY: Reviewed. REVIEW OF SYSTEMS: Cardiovascular: No angina or palpitations. RESPIRATORY: As mentioned earlier. GI no nausea or vomiting. no dysuria or retention. Nervous system: No numbness or weakness. CURRENT MEDICATIONS: Reviewed and include: 1. Tylenol p.r.n. 2. [place] 5 mg q.4 p.r.n. 3. Cefazolin 2 g IV q.8h. 4. Pepcid 20 mg. 5. Dilaudid 0.5 p.r.n. 6. Toradol. 7. Narcan. 8. Zofran. PHYSICAL EXAM: Patient is alert, oriented x3. The pulse is 90, blood pressure 185/98, respirations 16, temperature 98.5, pulse ox 94% on room air. HEENT: Conjunctivae normal. Neck: No JVD. CARDIOVASCULAR: S1, S2 muffled. RESPIRATIONS: Breath sounds diminished in the bases. Scattered rhonchi and crackles. ABDOMEN: Soft, nontender. LEGS are no edema. No swelling. CENTRAL NERVOUS SYSTEM: No focal deficits. Examination of left hand, incision and drainage abscess. LABS: Accu-Cheks 168 and CBC within normal limits. Glucose 209. ASSESSMENT: 1. Acute abscess and cellulitis of left hand middle finger, status post incision and drainage, left middle finger abscess. 2. Diabetes mellitus type 2, uncontrolled hyperglycemia with new onset. 3. Possible sepsis secondary to #1. 4. Hypertension. 5. History of nicotine dependence. 6. Hemoglobin A1c 10.5. 7. MSSA from the wound cultures. 8. FULL CODE. RECOMMENDATIONS AND DISCUSSION: This 63-year-old gentleman who presented with multiple complex medical issues, we will monitor the patient closely. Continue the current medications, management and symptomatic treatment. Otherwise, I would recommend initiate metformin at this time. Other than that, I would also recommend monitor blood sugars closely and antibiotics was transitioned into cefazolin at this time. Otherwise, I would also initiate beta blockers and NICOL inhibitors also because of the patient's diabetes mellitus as well. Prognosis guarded because of multiple complex medical issues. Further recommendations to follow. See orders for details. MMODL / IJN: [id number] /
[2019-05-12 20:15] LABS: Glucose,Whole Blood 233 mg/dL (75-99)
--- NOTE | 2019-05-12 22:12 | P.PN ---
Subjective Progress Note Date: 05/12/19 The patient states that the pain is fairly well controlled. He has been working on his range of motion but he does find that this makes the finger sore. He denies nausea, vomiting or difficulty breathing. He denies new issues or concern. Objective - Vital Signs Vital signs: Vital Signs Temp 98.2 F 05/12/19 20:01 Pulse 78 05/12/19 20:01 Resp 16 05/12/19 20:01 BP 165/96 05/12/19 20:01 Pulse Ox 98 05/12/19 20:01 Intake & Output 05/12/19 05/12/19 05/13/19 06:59 18:59 06:59 Intake Total 850 Balance 850 Weight 96.978 kg Intake: Intake, IV Titration 500 Amount Vancomycin 1,750 mg In 500 Sodium Chloride 0.9% 500 ml 500 ml @ 167 mls/hr IVPB Q8H MAURICIO Rx#: [id number] Oral 350 Other: # Voids 1 1 - Exam The dressings were removed - these contained a mild amount of dry sanguinous drainage. Appropriate edema throughout the digit. No significant erythema. No discrete fluctuance or recurrent focal fluid collection. The drains are in place - both were removed easily. No purulent fluid followed. He is able to actively range the finger with minimal discomfort in the midrange. - Labs CBC & Chem 7: 05/10/19 07:18 05/12/19 06:40 Labs: Abnormal Lab Results - Last 24 Hours (Table) 05/12/19 05/12/19 05/12/19 Range/Units 06:40 06:49 11:44 Creatinine 0.52 L (0.66-1.25) mg/dL POC Glucose (mg/dL) 168 H 209 H (75-99) mg/dL 05/12/19 05/12/19 Range/Units 16:44 20:13 Creatinine (0.66-1.25) mg/dL POC Glucose (mg/dL) 217 H 233 H (75-99) mg/dL Microbiology - Last 24 Hours (Table) 05/09/19 19:00 Blood Culture - Preliminary Blood No Growth after 72 hours 05/11/19 16:30 Gram Stain - Preliminary Finger - Left Third Wound Culture - Preliminary Presumptive Staph aureus 05/11/19 16:30 Anaerobic Culture - Preliminary Finger - Left Third 05/11/19 16:30 Fungal Culture - Preliminary Finger - Left Third 05/09/19 19:20 Gram Stain - Final Hand - Left Wound Culture - Final 05/09/19 20:00 Gram Stain - Final Hand - Left Wound Culture - Final Staphylococcus aureus Assessment and Plan Assessment: 1. Post operative day #1 status post incision and drainage of left middle f cecilia abscess 2. Uncontrolled diabetes mellitus Plan: I reviewed the intraoperative findings with the patient. Cultures from the ED showed pansensitive staph aureus. Intraoperative cultures still pending. Continue IV antibiotics per ID A new dressing was applied. This may be changed as needed. Encouraged him to continue working on active and passive mobilization. Discharge planning. Expect discharge home once final antibiotic plan is in place.
[2019-05-13 07:09] LABS: Glucose,Whole Blood 192 mg/dL (75-99)
[2019-05-13 08:03] LABS: Basophils % (A) 1 %; Eosinophils # (A) 0.3 k/uL (0-0.7); Eosinophils % (A) 6 %; HCT 41.9 % (39.0-53.0); HGB 14.7 gm/dL (13.0-17.5); Lymphocytes # (A) 1.1 k/uL (1.0-4.8); Lymphocytes % (A) 26 %; MCH 31.5 pg (25.0-35.0); Mean Platelet Volume 7.5; Monocytes # (A) 0.2 k/uL (0-1.0); Monocytes % (A) 5 %; Neutrophils # (A) 2.4 k/uL (1.3-7.7); Neutrophils % (A) 60 %; Platelet Count 201 k/uL (150-450); RBC 4.65 m/uL (4.30-5.90); RDW 12.7 % (11.5-15.5); WBC 4.1 k/uL (3.8-10.6)
[2019-05-13 08:07] LABS: African American GFR (CKD) >90 (>60 ml/min/1.73 sqM); Anion Gap 7 mmol/L; Blood Urea Nitrogen 10 mg/dL (9-20); Carbon Dioxide 26 mmol/L (22-30); Chloride 105 mmol/L (98-107); Glucose 202 mg/dL (74-99); Non-African American GFR(CKD) >90 (>60 ml/min/1.73 sqM); Potassium 4.3 mmol/L (3.5-5.1); Sodium 138 mmol/L (137-145)
[2019-05-13 08:52] LABS: Glucose,Whole Blood 249 mg/dL (75-99)
[2019-05-13] MEDS: INSULIN ASPART (NovoLOG) 100 UNIT/ML VIAL SQ SCH ×4 (08:54→20:55)
[2019-05-13] MEDS: LISINOPRIL 5 MG TAB PO SCH (08:55)
[2019-05-13] MEDS: FAMOTIDINE 20 MG TAB PO SCH ×2 (08:55→20:55)
[2019-05-13] MEDS: METOPROLOL TARTRATE 25 MG TAB PO SCH (08:55)
[2019-05-13] MEDS: NICOTINE 14MG/24HR PATCH TRANSDERM SCH (08:55)
[2019-05-13] MEDS: metFORMIN 500 MG TAB PO SCH ×2 (08:55→16:42)
[2019-05-13 11:38] LABS: Glucose,Whole Blood 229 mg/dL (75-99)
--- NOTE | 2019-05-13 14:43 | P.PN ---
Subjective Progress Note Date: 05/13/19 The patient reports good overall pain control. He has been working regularly on motion and feels that it is improving. No issues or concerns overnight. He feels that the finger is doing well. Objective - Vital Signs Vital signs: Vital Signs Temp 97.9 F 05/13/19 14:24 Pulse 78 05/13/19 14:24 Resp 15 05/13/19 14:24 BP 170/98 05/13/19 14:24 Pulse Ox 98 05/13/19 14:24 Intake & Output 05/12/19 05/13/19 05/13/19 18:59 06:59 18:59 Intake Total 590 400 Balance 590 400 Weight 96.978 kg Intake: Intake, IV Titration 50 Amount ceFAZolin 2 gm In Sodium 50 Chloride 0.9% 50 ml @ 100 mls/hr IVPB Q8HR [facility]URICIO Rx# :[id number] Oral 540 400 Other: # Voids 1 - Exam The dressings were removed and contained minimal fluid. The suture line is intact. The skin over the mid aspect is friable but it has not opened up. No fluid was expressed from the wound. Interval decrease in edema. His active range of motion is improved though the digit is still is unable to completely reach the palm. - Labs CBC & Chem 7: 05/13/19 06:43 05/13/19 06:43 Labs: Abnormal Lab Results - Last 24 Hours (Table) 05/12/19 05/12/19 05/13/19 Range/Units 16:44 20:13 06:43 Creatinine 0.60 L (0.66-1.25) mg/dL Glucose 202 H (74-99) mg/dL POC Glucose (mg/dL) 217 H 233 H (75-99) mg/dL 05/13/19 05/13/19 05/13/19 Range/Units 07:07 08:50 11:35 Creatinine (0.66-1.25) mg/dL Glucose (74-99) mg/dL POC Glucose (mg/dL) 192 H 249 H 229 H (75-99) mg/dL Microbiology - Last 24 Hours (Table) 05/09/19 19:00 Blood Culture - Preliminary Blood No Growth after 72 hours 05/11/19 16:30 Gram Stain - Preliminary Finger - Left Third Wound Culture - Preliminary Presumptive Staph aureus Assessment and Plan Assessment: 1. Post operative day #2 status post incision and drainage of left middle finger abscess 2. Uncontrolled diabetes mellitus Plan: Intraoperative cultures show presumptive staph aureus. Continue IV antibiotics per ID A new dressing was applied. This may be changed as needed. Encouraged him to continue working on active and passive mobilization. OK to discharge home (from ortho standpoint) once final antibiotic plan is in place. Follow up outpatient in 1 week.
[2019-05-13] MEDS ORDERED: LORazepam 0.5 MG TAB PO PRN (15:37)
[2019-05-13 16:32] LABS: Glucose,Whole Blood 204 mg/dL (75-99)
--- NOTE | 2019-05-13 18:38 | PN ---
PROGRESS NOTE DATE OF SERVICE: 05/13/2019. This 63-year-old gentleman who was admitted with acute abscess and cellulitis of the left middle finger, is being closely monitored at this time. The finger is sutured it is swelling and some surrounding cellulitis also noted. The cultures showed presumptive Staph aureus. The initial wound culture showed MSSA. The patient is on Cefazolin at this time. The patient being closely monitored. PAST MEDICAL HISTORY: Reviewed. REVIEW OF SYSTEMS: Cardiovascular: No angina or palpitations. Respiration no cough. GI no nausea or vomiting. no dysuria. Nervous systems: No numbness or weakness. CURRENT MEDICATIONS: Reviewed and include: 1. Tylenol p.r.n. 2. [place] 5 mg. 3. Cefazolin 2 g IV q.8. 4. Cefazolin. 5. Catapres 0.1 q.4h p.r.n. 6. Pepcid 20 mg b.i.d. 7. Dilaudid p.r.n. 8. Toradol. 9. Zestril. 10.Glucophage. 11.Lopressor. 12.Narcan. 13.Habitrol 14. 14.Zofran. PHYSICAL EXAM: Patient is alert, oriented x3. Pulse is 78, blood pressure 117/98, respiration 15, temperature 97.9, pulse ox 98% on room air. HEENT: Oral mucosa moist. NECK is no jugular venous distention. No carotid bruit. No lymph node enlargement. CARDIOVASCULAR systems: S1, S2 muffled. RESPIRATIONS: Breath sounds diminished in the bases. No rhonchi. No crackles. ABDOMEN: Soft, nontender. LEGS: No edema. No swelling. Nervous system: No focal deficits. Examination of the left hand significant abscess status post incision and drainage. Sutured, surrounding cellulitis, tenderness and some swelling also present. LABS: WBC 4.1, hemoglobin 14.7. Glucose 202, 193, 229. ASSESSMENT: 1. Acute abscess and cellulitis of the left hand middle finger, status post incision and drainage, left middle finger abscess. 2. Diabetes mellitus type 2, uncontrolled with hyperglycemia with new onset. 3. Possible sepsis secondary to #1. 4. Hypertension. 5. History of nicotine dependence. 6. Hemoglobin A1c 10.5. 7. MSSA from the wound cultures. 8. FULL CODE. RECOMMENDATIONS AND DISCUSSION: This 63-year-old gentleman who presented with multiple complex medical issues, we will monitor the patient closely, continue the current medications, continue symptomatic treatment. I also recommend Lantus for better control of diabetes. Hemoglobin A1c is 10.5. Recommend Lantus 20 units and continue the scale also. DVT prophylaxis and broad-spectrum IV antibiotics as mentioned earlier. I would also recommend p.r.n. Ativan also. Otherwise, we will continue to monitor. Further recommendations to follow. MMODL / IJN: [id number] /
[2019-05-13 20:28] LABS: Glucose,Whole Blood 248 mg/dL (75-99)
[2019-05-13] MEDS: HEPARIN SODIUM,PORCINE 5,000 UNIT/ML 1 ML VIAL SQ SCH (20:54)
[2019-05-13] MEDS ORDERED: INSULIN DETEMIR (LEVEMIR) 100 UNIT/ML SYR SQ SCH (21:00)
--- NOTE | 2019-05-13 23:56 | PN ---
PROGRESS NOTE DATE OF SERVICE: 05/13/2019. REASON FOR FOLLOWUP: Left middle finger abscess. INTERVAL HISTORY: The patient is currently afebrile. Patient has been breathing comfortably. The patient denies having any chest pain, shortness of breath or cough. No nausea or vomiting, no abdominal pain or pain to the left middle finger area. PHYSICAL EXAMINATION: Blood pressure is 155/80 with a pulse of 75. Temperature 97.9. He is 98% on room air. General description is a middle-aged male lying in bed in no distress. Respiratory system: Unlabored breathing, clear to auscultation anteriorly. Heart S1, S2. Regular rate and rhythm. ABDOMEN: Soft, no tenderness. LABS: No new labs have been obtained today. DIAGNOSTIC IMPRESSION AND PLAN: Patient with left middle finger abscess with no evidence of any deep infection. Blood culture has been negative. Currently on cefazolin. Plan to finish therapy with oral Keflex 500 mg p.o. q.6 hours for 10 days and close outpatient followup. MMODL / IJN: [id number] /
[2019-05-14 07:30] LABS: Glucose,Whole Blood 201 mg/dL (75-99)
[2019-05-14 07:32] LABS: Basophils # (A) 0.1 k/uL (0-0.2); Basophils % (A) 1 %; Eosinophils # (A) 0.2 k/uL (0-0.7); Eosinophils % (A) 5 %; HCT 42.3 % (39.0-53.0); HGB 14.7 gm/dL (13.0-17.5); Lymphocytes # (A) 1.3 k/uL (1.0-4.8); Lymphocytes % (A) 29 %; MCH 32.1 pg (25.0-35.0); MCHC 34.8 g/dL (31.0-37.0); MCV 92.3 fL (80.0-100.0); Mean Platelet Volume 7.5; Monocytes # (A) 0.3 k/uL (0-1.0); Monocytes % (A) 7 %; Neutrophils # (A) 2.4 k/uL (1.3-7.7); Neutrophils % (A) 55 %; Platelet Count 199 k/uL (150-450); RBC 4.58 m/uL (4.30-5.90); RDW 12.6 % (11.5-15.5); WBC 4.4 k/uL (3.8-10.6)
[2019-05-14 07:43] VITALS: BP 143/81; PULSE 95; RESP 16; TEMP 98.2
[2019-05-14 07:50] LABS: African American GFR (CKD) >90 (>60 ml/min/1.73 sqM); Anion Gap 9 mmol/L; Blood Urea Nitrogen 12 mg/dL (9-20); Calcium 9.3 mg/dL (8.4-10.2); Carbon Dioxide 28 mmol/L (22-30); Chloride 100 mmol/L (98-107); Glucose 196 mg/dL (74-99); Non-African American GFR(CKD) >90 (>60 ml/min/1.73 sqM); Potassium 4.1 mmol/L (3.5-5.1); Sodium 137 mmol/L (137-145)
[2019-05-14] MEDS: INSULIN ASPART (NovoLOG) 100 UNIT/ML VIAL SQ SCH ×2 (08:00→12:55)
[2019-05-14] MEDS: METOPROLOL TARTRATE 25 MG TAB PO SCH (08:11)
[2019-05-14] MEDS: LISINOPRIL 5 MG TAB PO SCH (08:11)
[2019-05-14] MEDS: metFORMIN 500 MG TAB PO SCH (08:11)
[2019-05-14] MEDS: FAMOTIDINE 20 MG TAB PO SCH (08:11)
[2019-05-14] MEDS: HEPARIN SODIUM,PORCINE 5,000 UNIT/ML 1 ML VIAL SQ SCH (08:12)
[2019-05-14 11:47] LABS: Glucose,Whole Blood 196 mg/dL (75-99)
[2019-05-14] MEDS: NICOTINE 14MG/24HR PATCH TRANSDERM SCH (13:00)
--- NOTE | 2019-05-14 17:55 | PN ---
PROGRESS NOTE DATE OF SERVICE: 05/14/2019 REASON FOR FOLLOWUP: Left middle finger MSSA infection. INTERVAL HISTORY: The patient is currently afebrile. Patient has been breathing comfortably. Patient denies having any chest pain or any cough. No nausea, vomiting. No abdominal pain or any worsening pain in the left hand area. PHYSICAL EXAMINATION: Blood pressure is 143/81 with a pulse of 95, temperature 98.2. He is 95% on room air. General description is a middle-aged male up in the room in no distress. Respiratory system: Unlabored breathing, clear to auscultation anteriorly. Heart S1, S2. Regular rate and rhythm. Abdomen is soft, no tenderness. Left hand dorsum area swelling and redness has improved. No drainage. LABS: Hemoglobin is 14.8, white count 4.4, BUN of 20, creatinine 0.71. DIAGNOSTIC IMPRESSION AND PLAN: Patient with left middle finger abscess status post drainage with no evidence of any deep infection. Culture positive for MSSA. Blood culture negative. To finish therapy with oral Keflex 500 mg p.o. q.6 hours for 10 days. Prescription sent to the pharmacy. Continue supportive care. MMODL / IJN: [id number] /
--- NOTE | 2019-05-15 07:27 | DS ---
DISCHARGE SUMMARY DATE OF SERVICE: 05/14/2019 FINAL DIAGNOSES: 1. Acute abscess and cellulitis of the left middle finger, status post incision drainage left middle finger abscess with MSSA. 2. Diabetes mellitus type 2, uncontrolled hyperglycemia with new onset. 3. Possible sepsis secondary to #1, present on admission. 4. Hypertension. 5. History of nicotine dependence. 6. Hemoglobin A1c 10.5. 7. MSSA from the wound cultures. 8. FULL CODE. DISCHARGE DISPOSITION: The patient will be discharged in stable condition with guarded prognosis. HISTORY OF PRESENT ILLNESS: This 63-year-old gentleman with a past medical history of multiple medical problems admitted with possible abscess of the left hand middle finger. Dr. Foster recommended incision and drainage. Patient given antibiotics. Culture showed MSSA and the patient is recommended outpatient antibiotics. On exam, vitals are stable. CARDIOVASCULAR: S1, S2 muffled. ABDOMEN: Soft. NERVOUS SYSTEM: No focal deficits. DISCHARGE ADVICE: 1. Diet is cardiac, consistent carb. 2. Activity limited until followup. 3. Follow up with Dr. Lyons in 2 to 3 days. 4. Follow up with Dr. Beltran and Dr. Foster as recommended. Medications are: 1. [place] as before. No smoking. 2. Lantus 20 units subcu at bedtime. 3. Glucophage 500 mg p.o. b.i.d. 4. Keflex 500 mg p.o. q.6 for 2 weeks. 5. Lopressor 25 mg p.o. daily. 6. Tylenol p.r.n. 7. Zestril 5 mg p.o. daily. Once again, the patient will be discharged in a stable condition with a guarded prognosis. MMODL / IJN: [id number] /
== END 2019-05-14 15:50 | disposition home or self-care (01) | DRG 580 ==
LOC: EC 18:11 → 4SSUR 20:53 → OBSVTOIN 05-11 09:27
PROVIDERS: ADMIT Internal Medicine; ATTEND Internal Medicine
PROC: 0JBK0ZZ Excision of Left Hand Subcutaneous Tissue and Fascia, Open Approach (ICD-10-PCS; 2019-05-11)
PROC: 0X9K0ZZ Drainage of Left Hand, Open Approach (ICD-10-PCS; principal; 2019-05-11 09:20)
DX: L03.012 Cellulitis of left finger (principal); L02.512 Cutaneous abscess of left hand; B95.61 Methicillin susceptible Staphylococcus aureus infection as the cause of diseases classified elsewhere; E11.65 Type 2 diabetes mellitus with hyperglycemia; I10 Essential (primary) hypertension; Z82.49 Family history of ischemic heart disease and other diseases of the circulatory system; Z83.3 Family history of diabetes mellitus; Z87.891 Personal history of nicotine dependence
CPT/HCPCS: 10060; 36415; 80048; 80053; 80202; 82565; 83036; 83605; 85025; 87040; 87070; 87075; 87077; 87102; 87186; 87205; 96361; 96365; 96375; 99284

== ENCOUNTER → 2019-12-14 | Outpatient (CLI) | payer OTHER | END | disposition home or self-care (01) | LOC: LABWHC1 13:27 | PROVIDERS: ATTEND Nurse Practitioner Adult Health | DX: Z20.828 Contact with and (suspected) exposure to other viral communicable diseases (principal) | CPT/HCPCS: U0003; C9803 ==

== ENCOUNTER → 2021-08-13 | Outpatient (CLI) | payer OTHER ==
--- NOTE | 2021-08-13 12:42 | US ---
EXAMINATION TYPE: US abdomen complete DATE OF EXAM: 08/13/2021 COMPARISON: NONE CLINICAL HISTORY: 66-year-old male D72.819 LEUKOCYTOPENIA. TECHNIQUE: Multiple sonographic images of the abdomen are obtained. FINDINGS: EXAM MEASUREMENTS: Liver Length: 15.8 cm Gallbladder Wall: .2 cm CBD: .4 cm Spleen: 13.6 cm Right Kidney: 8.2 x 4.2 x 3.7 cm Left Kidney: 10.6 x 5.8 x 6.1 cm Pancreas: A small portion of the pancreatic head is seen. The body and tail are secured by bowel gas shadowing. Liver: wnl Gallbladder: No stones seen Evidence for sonographic Cross's sign: No CBD: wnl Spleen: Upper limits. Right Kidney: No hydronephrosis or masses seen Left Kidney: Lower pole limited by bowel gas shadowing. No hydronephrosis or masses seen along the v isualized portions. Upper IVC: wnl Abd Aorta: Proximal to mid abdominal aorta is obscured. Distal abdominal aorta normal caliber. IMPRESSION: 1. Borderline splenomegaly at 13.6 cm. 2. Suboptimal visualization of the pancreas, abdominal aorta, and lower pole left kidney. 3. No gallstones or biliary ductal dilatation.
== END | disposition home or self-care (01) ==
LOC: RADUSWWP 08:10
PROVIDERS: ATTEND Internal Medicine Hematology & Oncology
DX: R16.1 Splenomegaly, not elsewhere classified (principal); D72.819 Decreased white blood cell count, unspecified
CPT/HCPCS: 76700

== ENCOUNTER → 2022-09-13 | Outpatient (CLI) | payer MEDICARE, OTHER ==
--- NOTE | 2022-09-13 11:26 | CA ---
Stress Echo Report Jayson Reynoso Age: 67 Gender: M : 1955 Exam Date: 09/13/2022 09:37 Exam Location: [facility] Ht (in): 77 Wt (lb): 190 Ordering Physician: Fadi Calvert MD Referring Physician: REE, Mental Health Counselor: SHIV Technologist Procedure CPT: Indication: I45.10 ICD-9 Codes: Rhythm: Patient History: Abnormal EKG Cardiac Medications: Medications in past 24 hours: Contrast: Stress Results Protocol: Lee Total dose(mL): Exercise Duration (min:sec): 9:[address] Depression (mm): Angina Score: Monson Score: METS: 9.2 Resting HR: 85 Resting BP: 168 / 74 Peak HR: 133 Peak BP: 217 / 68 Max Predicted HR: 154 86 % Max Predicted HR Target HR: 131 Double Product: [id number] Stress Summary: The patient's target heart rate was achieved BP Response: Normal Reason for Termination: Reached target heart rate or work-load Cardiac Symptoms: None ECG Analysis Resting ECG: Right bundle branch block Stress ECG: Exaggeration of the baseline ST abnormality Arrhythmia: None Echo Analysis Resting Echo: Normal resting echocardiogram. Peak Echo Analysis: Normal treadmill stress echocardiogram. MEASUREMENTS (Male/Female) Normal Values CONCLUSIONS 1. Good exercise tolerance 2. Nondiagnostic left cardiographic stress testing secondary to baseline EKG abnormality. 3. Normal stress echocardiogram with no evidence of stress induced ischemia. Dr. Vanessa Jefferson MD (Electronically Signed) Final Date: 13 Sep 2022 11:26
== END | disposition home or self-care (01) ==
LOC: RADNMMAIN 08:47
PROVIDERS: ATTEND Internal Medicine
DX: I45.10 Unspecified right bundle-branch block (principal)
CPT/HCPCS: 93351

== ENCOUNTER 2024-08-19 15:20 | Observation (INO) | payer MEDICARE ==
[2024-08-19 16:21] LABS: Appearance,Urine Clear (Clear); Bilirubin,Urine Negative (Negative); Blood,Urine Negative (Negative); Color,Urine Yellow; Glucose,Urine (UA) 1+ (Negative); Ketones,Urine 1+ (Negative); Leukocyte Esterase,Urine Negative (Negative); Nitrite,Urine Negative (Negative); PH, Urine 6.5 (5.0-8.0); Protein,Urine Trace (Negative); Specific Gravity,Urine 1.011 (1.001-1.035); Urobilinogen,Urine <2.0 mg/dL (<2.0)
--- NOTE | 2024-08-19 16:36 | ED ---
Back Pain HPI - General Chief Complaint: Back Pain/Injury Stated Complaint: lower back pain Time Seen by Provider: 08/19/24 15:35 Source: patient, RN notes reviewed Limitations: no limitations - History of Present Illness Initial Comments: This is a 69-year-old male with history of DM presenting for low back pain (02/22) x 1 week. Patient states pain is constant without recent trauma or change in pain with movement. Patient denies radiculopathy, paresthesia, saddle paresthesia, urinary incontinence/retention. Patient endorses associated abdominal pain. Denies fever, chills, chest pain, dyspnea, N/V/D. MD Complaint: back pain Onset/Timin -: days(s) Radiation: none Severity scale (1-10): 10 Consistency: constant Associated Symptoms: denies other symptoms - Related Data Home Medications Medication Instructions Recorded Confirmed Ascorbic Acid [Vitamin C] 1,000 mg PO DAILY 08/19/24 08/19/24 Aspirin EC [Ecotrin Low Dose] 81 mg PO DAILY 08/19/24 08/19/24 Atorvastatin [Lipitor] 40 mg PO PC-SUPPER 08/19/24 08/19/24 Cyanocobalamin (Vitamin B-12) 1,000 mcg PO DAILY 08/19/24 08/19/24 [Vitamin B-12] Krill Oil 500mg 1 cap PO DAILY 08/19/24 08/19/24 Metoprolol Succinate (ER) [Toprol 25 mg PO PC-SUPPER 08/19/24 08/19/24 Xl] Metoprolol Succinate (ER) [Toprol 50 mg PO PC-SUPPER 08/19/24 08/19/24 Xl] Pioglitazone [Actos] 45 mg PO PC-SUPPER 08/19/24 08/19/24 lisinopriL [Zestril] 40 mg PO DAILY 08/19/24 08/19/24 metFORMIN HCL [Glucophage] 500 mg PO PC-BID 08/19/24 08/19/24 Allergies Allergy/AdvReac Type Severity Reaction Status Date / Time No Known Allergies Allergy Verified 08/19/24 18:30 Review of Systems ROS Statement: Those systems with pertinent positive or pertinent negative responses have been documented in the HPI. ROS Other: All systems not noted in ROS Statement are negative. Past Medical History Past Medical History: Diabetes Mellitus History of Any Multi-Drug Resistant Organisms: MRSA Date of last positivie culture/infection: 2016 MDRO Source:: lt 3rd finger Past Surgical History: Joint Replacement Past Anesthesia/Blood Transfusion Reactions: No Reported Reaction Smoking Status: Former smoker Past Alcohol Use History: Occasional Past Drug Use History: None Reported - Past Family History Mother Family Medical History: Diabetes Mellitus, Hypertension Father Family Medical History: Diabetes Mellitus, Hypertension General Exam Limitations: no limitations General appearance: alert, in no apparent distress Head exam: Present: atraumatic, normocephalic, normal inspection Eye exam: Present: normal appearance, PERRL, EOMI. Absent: scleral icterus, conjunctival injection, periorbital swelling ENT exam: Present: normal exam, mucous membranes moist Neck exam: Present: normal inspection. Absent: tenderness, meningismus, lymphadenopathy Respiratory exam: Present: normal lung sounds bilaterally. Absent: respiratory distress, wheezes, rales, rhonchi, stridor Cardiovascular Exam: Present: regular rate, normal rhythm, normal heart sounds. Absent: systolic murmur, diastolic murmur, rubs, gallop, clicks GI/Abdominal exam: Present: soft, tenderness (Positive epigastric and suprapubic TTP with guarding), guarding (Voluntary guarding), normal bowel sounds, other (Tapping on back radiates to abdomen). Absent: distended, rebound, rigid Extremities exam: Present: normal inspection, full ROM, normal capillary refill. Absent: tenderness, pedal edema, joint swelling, calf tenderness Back exam: Present: muscle spasm, paraspinal tenderness. Absent: vertebral tenderness Neurological exam: Present: alert, oriented X3, CN II-XII intact Psychiatric exam: Present: normal affect, normal mood Skin exam: Present: warm, dry, intact, normal color. Absent: rash Course Vital Signs 08/19/24 15:43 Temperature 98.1 F Pulse Rate 95 Respiratory 18 Rate Blood Pressure 158/83 O2 Sat by Pulse 99 Oximetry Medical Decision Making - Medical Decision Making Was pt. sent in by a medical professional or institution (, PA, [employer], urgent care, hospital, or senior living...) When possible be specific @ -No Did you speak to anyone other than the patient for history (EMS, parent, family, police, friend...)? What history was obtained from this source @ -No Did you review nursing and triage notes (agree or disagree)? Why? @ -I reviewed and agree with nursing and triage notes Were old charts reviewed (outside hosp., previous admission, EMS record, old EKG, old radiological studies, urgent care reports/EKG's, senior living records)? Report findings @ -No old charts were reviewed Differential Diagnosis (chest pain, altered mental status, abdominal pain women, abdominal pain men, vaginal bleeding, weakness, fever, dyspnea, syncope, headache, dizziness, GI bleed, back pain, seizure, CVA, palpatations, mental health, musculoskeletal)? @ -Differential Back Pain: Strain, zoster, cauda equina syndrome, epidural abscess, vertebral osteomyelitis, discitis, fracture, subluxation, disc herniation, DJD, spinal stenosis, dissection, AAA, pancreatitis, peptic ulcer disease, pyelonephritis, kidney stone, this is not meant to be an all-inclusive list. EKG interpreted by me (3pts min.). @ -Not done X-rays interpreted by me (1pt min.). @ -None done CT interpreted by me (1pt min.). @ -Abdomen/pelvic CT shows peripancreatic fat stranding indicating likely pancreatitis. U/S interpreted by me (1pt. min.). @ -None done What testing was considered but not performed or refused? (CT, X-rays, U/S, labs)? Why? @ -None What meds were considered but not given or refused? Why? @ -None Did you discuss the management of the patient with other professionals (professionals i.e. , PA, [employer], lab, RT, psych nurse, social work specialist, ash conveyor operator, teacher, business practices officer, bottle caser)? Give summary @ -Spoke to Dr. Robbins from [facility] [place] for admission of patient. Was smoking cessation discussed for >3mins.? @ -No Was critical care preformed (if so, how long)? @ -No Were there social determinants of health that impacted care today? How? (Homelessness, low income, unemployed, alcoholism, drug addiction, transportation, low edu. Level, literacy, decrease access to med. care, senior living, rehab)? @ -No Was there de-escalation of care discussed even if they declined (Discuss DNR or withdrawal of care, Hospice)? DNR status @ -No What co-morbidities impacted this encounter? (DM, HTN, Smoking, COPD, CAD, Cancer, CVA, ARF, Chemo, Hep., AIDS, mental health diagnosis, sleep apnea, morbid obesity)? @ -None Was patient admitted / discharged? Hospital course, mention meds given and route, prescriptions, significant lab abnormalities, going to OR and other pertinent info. @ -Lab work shows mild anemia hemoglobin 12.7, hyperglycemia 181 elevated amylase 156 and elevated lipase 1176. UA shows mild proteinuria, glycosuria, ketonuria. Patient initially provided IM Dilaudid, Toradol and Norflex for suspected musculoskeletal pain. Patient notes no relief in pain with imaging performed afterwards. Abdomen/pelvic CT shows peripancreatic fat stranding indicating likely pancreatitis. Patient provided additional IM Dilaudid and started on IV normal saline. Spoke to Dr. Robbins from [facility] [place] for admission of patient. Discussed patient with Dr. Oates. Undiagnosed new problem with uncertain prognosis? @ -No Drug Therapy requiring intensive monitoring for toxicity (Heparin, Nitro, Insulin, Cardizem)? @ -No Were any procedures done? @ -No Diagnosis/symptom? @ -Pancreatitis Acute, or Chronic, or Acute on Chronic? @ -Acute Uncomplicated (without systemic symptoms) or Complicated (systemic symptoms)? @ -Uncomplicated Side effects of treatment? @ -No Exacerbation, Progression, or Severe Exacerbation? @ -No Poses a threat to life or bodily function? How? (Chest pain, [place], [place], pneumonia, PE, COPD, DKA, ARF, appy, cholecystitis, CVA, Diverticulitis, Homicidal, Suicidal, threat to staff... and all critical care pts) @ -Pancreatitis - Lab Data Result diagrams: 08/19/24 17:55 08/19/24 17:55 Lab Results 08/19/24 08/19/24 08/19/24 Range/Units 16:02 17:55 17:55 WBC 9.5 (3.8-10.6) k/uL RBC 4.09 L (4.30-5.90) m/uL Hgb 12.7 L (13.0-17.5) gm/dL Hct 38.1 L (39.0-53.0) % MCV 93.2 (80.0-100.0) fL MCH 31.2 (25.0-35.0) pg MCHC 33.4 (31.0-37.0) g/dL RDW 13.5 (11.5-15.5) % Plt Count 268 (150-450) k/uL MPV 7.7 Neutrophils % 83 % Lymphocytes % 7 % Monocytes % 6 % Eosinophils % 1 % Basophils % 1 % Neutrophils # 7.9 H (1.3-7.7) k/uL Lymphocytes # 0.6 L (1.0-4.8) k/uL Monocytes # 0.6 (0-1.0) k/uL Eosinophils # 0.1 (0-0.7) k/uL Basophils # 0.1 (0-0.2) k/uL Sodium 136 L (137-145) mmol/L Potassium 4.0 (3.5-5.1) mmol/L Chloride 98 (98-107) mmol/L Carbon Dioxide 28 (22-30) mmol/L Anion Gap 10 mmol/L BUN 10 (9-20) mg/dL Creatinine 0.48 L (0.66-1.25) mg/dL Est GFR (CKD-EPI)AfAm >90 (>60 ml/min/1.73 sqM) Est GFR (CKD-EPI)NonAf >90 (>60 ml/min/1.73 sqM) Glucose 181 H (74-99) mg/dL Plasma Lactic Acid Jarett (0.7-2.0) mmol/L Calcium 9.5 (8.4-10.2) mg/dL Total Bilirubin 0.8 (0.2-1.3) mg/dL AST 21 (17-59) U/L ALT 21 (4-49) U/L Alkaline Phosphatase 89 (38-126) U/L Total Protein 6.7 (6.3-8.2) g/dL Albumin 4.1 (3.5-5.0) g/dL Amylase 156 H (30-110) U/L Lipase 1176 H (23-300) U/L Urine Color Yellow Urine Appearance Clear (Clear) Urine pH 6.5 (5.0-8.0) Ur Specific [place] 1.011 (1.001-1.035) Urine Protein Trace H (Negative) Urine Glucose (UA) 1+ H (Negative) Urine Ketones 1+ H (Negative) Urine Blood Negative (Negative) Urine Nitrite Negative (Negative) Urine Bilirubin Negative (Negative) Urine Urobilinogen <2.0 (<2.0) mg/dL Ur Leukocyte Esterase Negative (Negative) 08/19/24 Range/Units 17:56 WBC (3.8-10.6) k/uL RBC (4.30-5.90) m/uL Hgb (13.0-17.5) gm/dL Hct (39.0-53.0) % MCV (80.0-100.0) fL MCH (25.0-35.0) pg MCHC (31.0-37.0) g/dL RDW (11.5-15.5) % Plt Count (150-450) k/uL MPV Neutrophils % % Lymphocytes % % Monocytes % % Eosinophils % % Basophils % % Neutrophils # (1.3-7.7) k/uL Lymphocytes # (1.0-4.8) k/uL Monocytes # (0-1.0) k/uL Eosinophils # (0-0.7) k/uL Basophils # (0-0.2) k/uL Sodium (137-145) mmol/L Potassium (3.5-5.1) mmol/L Chloride (98-107) mmol/L Carbon Dioxide (22-30) mmol/L Anion Gap mmol/L BUN (9-20) mg/dL Creatinine (0.66-1.25) mg/dL Est GFR (CKD-EPI)AfAm (>60 ml/min/1.73 sqM) Est GFR (CKD-EPI)NonAf (>60 ml/min/1.73 sqM) Glucose (74-99) mg/dL Plasma Lactic Acid Jarett 1.3 (0.7-2.0) mmol/L Calcium (8.4-10.2) mg/dL Total Bilirubin (0.2-1.3) mg/dL AST (17-59) U/L ALT (4-49) U/L Alkaline Phosphatase (38-126) U/L Total Protein (6.3-8.2) g/dL Albumin (3.5-5.0) g/dL Amylase (30-110) U/L Lipase (23-300) U/L Urine Color Urine Appearance (Clear) Urine pH (5.0-8.0) Ur Specific [place] (1.001-1.035) Urine Protein (Negative) Urine Glucose (UA) (Negative) Urine Ketones (Negative) Urine Blood (Negative) Urine Nitrite (Negative) Urine Bilirubin (Negative) Urine Urobilinogen (<2.0) mg/dL Ur Leukocyte Esterase (Negative) Disposition Clinical Impression: Pancreatitis Disposition: ADMITTED IP TO THIS HOSP Condition: Stable Is patient prescribed a controlled substance at d/c from ED?: No Time of Disposition: 18:11 Decision Date: 08/19/24 Decision Time: 18:12
[2024-08-19] MEDS: KETOROLAC 15 MG/ML 1 ML VIAL IM STA (16:40)
[2024-08-19] MEDS: HYDROmorphone 0.5 MG/0.5 ML SYRINGE IM STA (16:40)
[2024-08-19] MEDS: ORPHENADRINE 30 MG/ML 2 ML VIAL IM STA (16:41)
[2024-08-19] MEDS: HYDROmorphone 1 MG/ML 1 ML SYRINGE IM STA (17:29)
--- NOTE | 2024-08-19 17:42 | CT ---
EXAMINATION TYPE: CT abdomen pelvis wo con DATE OF EXAM: 08/19/2024 5:32 PM COMPARISON: None. CLINICAL INDICATION: Male, 69 years old with history of Low back/abdominal pain; Low back/abdominal p ain TECHNIQUE: Axial CT abdomen pelvis wo con;Sagittal and coronal reformats were created on a separate workstation. Oral contrast used: without Oral Contrast (none if empty) CT DLP: 760.1 mGycm, Automated exposure control for dose reduction was used. FINDINGS: LOWER CHEST: Unremarkable ABDOMEN LIVER: Unremarkable GALLBLADDER AND BILE DUCTS: Unremarkable. PANCREAS: Peripancreatic fat stranding/inflammatory changes surrounding the region of the pancreatic head/neck and uncinate process (image [id number]). Limited evaluation for pancreatic necrosis given lack of IV contrast. Few scattered parenchymal calcifications. No evidence of pancreatic ductal dilatation . SPLEEN: Unremarkable. ADRENAL GLANDS: Unremarkable. KIDNEYS AND URETERS: No evidence of hydronephrosis or renal calculus. The ureters are unremarkable. PELVIS BLADDER: No evidence for wall thickening or mass given limitations of exam. REPRODUCTIVE: Unremarkable. ABDOMEN & PELVIS STOMACH AND BOWEL: Stomach and duodenum are unremarkable. Indeterminate mild wall thickening of the r ectosigmoid colon which could relate to underdistention, consider correlation with colonoscopy if not recently performed or as clinical warranted. Appendix unremarkable. No evidence of bowel obstruction . Mild duodenal wall thickening felt most likely reflect reactive duodenitis given adjacent pancreati tis. PERITONEUM/RETROPERITONEUM: No evidence of pneumoperitoneum or free fluid. VASCULATURE: No evidence of aortic aneurysm. MUSCULOSKELETAL: No acute osseous abnormalities LYMPH NODES: No gross evidence for lymphadenopathy. SOFT TISSUE/ABDOMINAL WALL: Unremarkable IMPRESSION: Acute peripancreatic fat stranding/acute inflammatory changes felt to most likely reflect acute pancr eatitis. Recommend correlation with lipase values. [facility], , 08/19/2024 5:39 PM
[2024-08-19] MEDS: SODIUM CHLORIDE 0.9% 1,000 ML IV STA (18:11)
[2024-08-19] MEDS ORDERED: ACETAMINOPHEN TAB 325 MG TAB PO PRN (18:13)
[2024-08-19] MEDS ORDERED: ONDANSETRON 4 MG/2 ML VIAL IVP PRN (18:13)
[2024-08-19] MEDS ORDERED: HYDROmorphone 1 MG/ML 1 ML SYRINGE IVP PRN (18:13)
[2024-08-19] MEDS ORDERED: NALOXONE 0.4 MG/ML 1 ML VIAL IV PRN (18:13)
[2024-08-19] MEDS ORDERED: NICOTINE GUM (POLACRILEX) 2 MG GUM BUCCAL PRN (18:15)
[2024-08-19 18:20] LABS: Basophils # (A) 0.1 k/uL (0-0.2); Basophils % (A) 1 %; Eosinophils # (A) 0.1 k/uL (0-0.7); Eosinophils % (A) 1 %; HCT 38.1 % (39.0-53.0); HGB 12.7 gm/dL (13.0-17.5); Lymphocytes # (A) 0.6 k/uL (1.0-4.8); Lymphocytes % (A) 7 %; MCH 31.2 pg (25.0-35.0); MCHC 33.4 g/dL (31.0-37.0); MCV 93.2 fL (80.0-100.0); Mean Platelet Volume 7.7; Monocytes # (A) 0.6 k/uL (0-1.0); Monocytes % (A) 6 %; Neutrophils # (A) 7.9 k/uL (1.3-7.7); Neutrophils % (A) 83 %; Platelet Count 268 k/uL (150-450); RBC 4.09 m/uL (4.30-5.90); RDW 13.5 % (11.5-15.5); WBC 9.5 k/uL (3.8-10.6)
[2024-08-19 18:32] LABS: ALT 21 U/L (4-49); AST 21 U/L (17-59); African American GFR (CKD) >90 (>60 ml/min/1.73 sqM); Albumin 4.1 g/dL (3.5-5.0); Alkaline Phosphatase 89 U/L (38-126); Amylase 156 U/L (30-110); Anion Gap 10 mmol/L; Blood Urea Nitrogen 10 mg/dL (9-20); Calcium 9.5 mg/dL (8.4-10.2); Carbon Dioxide 28 mmol/L (22-30); Chloride 98 mmol/L (98-107); Glucose 181 mg/dL (74-99); Lipase 1176 U/L (23-300); Non-African American GFR(CKD) >90 (>60 ml/min/1.73 sqM); Sodium 136 mmol/L (137-145); Total Bilirubin 0.8 mg/dL (0.2-1.3); Total Protein 6.7 g/dL (6.3-8.2)
[2024-08-19] MEDS: SODIUM CHLORIDE 0.9% 1,000 ML IV SCH ×2 (19:57→21:22)
[2024-08-19] MEDS: METOPROLOL TARTRATE 25 MG TAB PO SCH (21:21)
[2024-08-19] MEDS: metFORMIN 500 MG TAB PO SCH (21:21)
[2024-08-19] MEDS ORDERED: SODIUM CHLORIDE 0.9% 1,000 ML IV STA (21:26)
[2024-08-19] MEDS: HYDROmorphone 1 MG/ML 1 ML SYRINGE IVP PRN (21:38)
[2024-08-19] MEDS: INSULIN GLARGINE (LANTUS) 100 UNIT/ML SYR SQ SCH (23:36)
--- NOTE | 2024-08-20 04:37 | P.HPIM ---
History of Present Illness H&P Date: 08/19/24 Chief Complaint: abdominal pain The patient is a 69-year-old male with a history of diabetes who presented with 1 week of abdominal pain. Patient states the pain was epigastric and radiated to his back. The patient initially was afebrile temperature of 98.1, pulse of 95, respiratory rate of 18, systolic blood pressure of 158. The patient eventually got Dilaudid IM, Toradol and Norflex for presumed musculoskeletal pain. The patient had lab work that was significant for a lipase of 1176, glucose 181, hemoglobin 12.7, WBC 9.5. The patient had a CT scan of the abdomen that showed peripancreatic stranding. The patient received additional IM Dilaudid and was hospitalized for further workup and management. Review of Systems Reviewed and negative other than stated above Past Medical History Past Medical History: Diabetes Mellitus History of Any Multi-Drug Resistant Organisms: MRSA Date of last positivie culture/infection: 2016 MDRO Source:: lt 3rd finger Past Surgical History: Joint Replacement Past Anesthesia/Blood Transfusion Reactions: No Reported Reaction Smoking Status: Former smoker Past Alcohol Use History: Occasional Past Drug Use History: None Reported - Past Family History Mother Family Medical History: Diabetes Mellitus, Hypertension Father Family Medical History: Diabetes Mellitus, Hypertension Medications and Allergies Home Medications Medication Instructions Recorded Confirmed Type Ascorbic Acid [Vitamin C] 1,000 mg PO DAILY 08/19/24 08/19/24 History Aspirin EC [Ecotrin Low Dose] 81 mg PO DAILY 08/19/24 08/19/24 History Atorvastatin [Lipitor] 40 mg PO PC-SUPPER 08/19/24 08/19/24 History Cyanocobalamin (Vitamin B-12) 1,000 mcg PO DAILY 08/19/24 08/19/24 History [Vitamin B-12] Krill Oil 500mg 1 cap PO DAILY 08/19/24 08/19/24 History Metoprolol Succinate (ER) [Toprol 25 mg PO PC-SUPPER 08/19/24 08/19/24 History Xl] Metoprolol Succinate (ER) [Toprol 50 mg PO PC-SUPPER 08/19/24 08/19/24 History Xl] Pioglitazone [Actos] 45 mg PO PC-SUPPER 08/19/24 08/19/24 History lisinopriL [Zestril] 40 mg PO DAILY 08/19/24 08/19/24 History metFORMIN HCL [Glucophage] 500 mg PO PC-BID 08/19/24 08/19/24 History Allergies Allergy/AdvReac Type Severity Reaction Status Date / Time No Known Allergies Allergy Verified 08/19/24 18:30 Physical Exam Vitals: Vital Signs Temp Pulse Resp BP Pulse Ox 08/19/24 21:27 98.4 F 67 18 187/97 100 08/19/24 15:43 98.1 F 95 18 158/83 99 Intake and Output 08/19/24 08/19/24 08/20/24 14:59 22:59 06:59 Other: Weight 97.522 kg - Constitutional General appearance: no acute distress - Respiratory Respiratory: bilateral: CTA - Cardiovascular Rhythm: regular - Gastrointestinal General gastrointestinal: tenderness - Integumentary Integumentary: normal - Neurologic Neurologic: CNII-XII intact - Psychiatric Psychiatric: appropriate affect, intact judgment & insight Results CBC & Chem 7: 08/19/24 17:55 08/19/24 17:55 Labs: Abnormal Lab Results - Last 24 Hours (Table) 08/19/24 08/19/24 08/19/24 Range/Units 16:02 17:55 17:55 RBC 4.09 L (4.30-5.90) m/uL Hgb 12.7 L (13.0-17.5) gm/dL Hct 38.1 L (39.0-53.0) % Neutrophils # 7.9 H (1.3-7.7) k/uL Lymphocytes # 0.6 L (1.0-4.8) k/uL Sodium 136 L (137-145) mmol/L Creatinine 0.48 L (0.66-1.25) mg/dL Glucose 181 H (74-99) mg/dL Amylase 156 H (30-110) U/L Lipase 1176 H (23-300) U/L Urine Protein Trace H (Negative) Urine Glucose (UA) 1+ H (Negative) Urine Ketones 1+ H (Negative) CT scan - abdomen: report reviewed Assessment and Plan (1) Pancreatitis Narrative/Plan: IV fluids, GI consult, IV Dilaudid as needed for pain, IV Zofran Current Visit: Yes Status: Acute Code(s): K85.90 - ACUTE PANCREATITIS WITHOUT NECROSIS OR INFECTION, UNSP SNOMED Code(s): 55018388 (2) Diabetes mellitus Narrative/Plan: Hold metformin given recent CAT scan, sliding scale coverage, Current Visit: No Status: Acute Code(s): E11.9 - TYPE 2 DIABETES MELLITUS WITHOUT COMPLICATIONS SNOMED Code(s): 39006291 (3) HTN (hypertension) Narrative/Plan: Continue outpatient regimen and titrate as needed Current Visit: Yes Status: Acute Code(s): I10 - ESSENTIAL (PRIMARY) HYPERTENSION SNOMED Code(s): 78515878 (4) Abdominal pain Narrative/Plan: Continue IV Dilaudid as needed for pain Current Visit: Yes Status: Acute Code(s): R10.9 - UNSPECIFIED ABDOMINAL PAIN SNOMED Code(s): 79410621 Plan: Pain control, IV fluids, Accu-Cheks, sliding scale, GI consult
[2024-08-20] MEDS ORDERED: metFORMIN 500 MG TAB PO SCH (07:30)
[2024-08-20 07:50] LABS: Glucose,Whole Blood 210 mg/dL (70-110)
[2024-08-20 08:06] VITALS: TEMP 98.5
[2024-08-20] MEDS ORDERED: HYDROmorphone 2 MG/ML 1 ML SYRINGE IVP PRN (08:06)
[2024-08-20] MEDS ORDERED: METOPROLOL TARTRATE 25 MG TAB PO SCH (09:00)
[2024-08-20] MEDS: lisinopriL 5 MG TAB PO SCH (09:40)
[2024-08-20] MEDS: ENOXAPARIN 40 MG/0.4 ML SYRINGE SQ SCH (09:40)
[2024-08-20 10:25] LABS: Basophils # (A) 0.07 X 10*3/uL (0.00-0.10); Basophils % (A) 0.7 %; HCT 40.1 % (39.6-50.0); HGB 12.9 g/dL (13.0-17.0); Lymphocytes # (A) 0.96 X 10*3/uL (0.90-5.00); Lymphocytes % (A) 9.8 %; MCH 30.6 pg (27.0-32.0); MCHC 32.2 g/dL (32.0-37.0); Mean Platelet Volume 9.9 FL (9.5-12.2); Monocytes # (A) 0.74 X 10*3/uL (0.20-1.00); Monocytes % (A) 7.6 %; NRBC Per 100 WBC 0 X 10*3/uL (0.00-0.01); Neutrophils # (A) 7.85 X 10*3/uL (1.80-7.70); Neutrophils % (A) 80.6 %; Platelet Count 270 X 10*3/uL (140-440); RBC 4.22 X 10*6/uL (4.40-5.60); WBC 9.75 X 10*3/uL (4.50-10.00)
[2024-08-20 10:40] LABS: ALT 20 U/L (10-49); AST 22 U/L (14-35); Albumin 3.9 g/dL (3.8-4.9); Alkaline Phosphatase 85 U/L (41-126); BUN/Creat Ratio 11.83 Ratio (12.00-20.00); Blood Urea Nitrogen 7.1 mg/dL (9.0-27.0); Calcium 8.8 mg/dL (8.7-10.3); Carbon Dioxide 26.4 mmol/L (21.6-31.8); Chloride 98 mmol/L (96-109); Globulin 2.3 g/dL (1.6-3.3); Glucose 185 mg/dL (70-110); Lipase 150 U/L (14-60); Potassium 3.8 mmol/L (3.5-5.5); Sodium 136 mmol/L (135-145); Total Bilirubin 0.5 mg/dL (0.3-1.2); Total Protein 6.2 g/dL (6.2-8.2)
[2024-08-20] MEDS: HYDROmorphone 2 MG/ML 1 ML SYRINGE IVP PRN (10:59)
--- NOTE | 2024-08-20 12:10 | P.DS ---
Providers Date of admission: 08/19/24 18:06 Attending physician: Debo Robbins MD [facility] Course: Discharge diagnoses; #Pancreatitis #Diabetes mellitus #Hypertension Hospital course; 69-year-old male with a history of diabetes who presented with 1 week of abdominal pain. Patient states the pain was epigastric and radiated to his back. The patient initially was afebrile temperature of 98.1, pulse of 95, respiratory rate of 18, systolic blood pressure of 158. The patient eventually got Dilaudid IM, Toradol and Norflex for presumed musculoskeletal pain. The patient had lab work that was significant for a lipase of 1176, glucose 181, hemoglobin 12.7, WBC 9.5. The patient had a CT scan of the abdomen that showed peripancreatic stranding. The patient received additional IM Dilaudid and was hospitalized for further workup and management. Seen again this morning, he was reporting minimal pain while resting comfortably in bed. Tolerating diet well, however endorses not as much appetite as usual, he is able to tolerate food without issue. Has no complaints of nausea or vomiting. This morning his lipase level which would be 150 as compared to 1176 yesterday. His overall symptoms have improved. And he is excited and feels ready for discharge today. Physical Exam: General: nontoxic, no distress, appears at stated age Derm: warm, dry, intact Head: atraumatic, normocephalic, symmetric Eyes: EOMI, anicteric sclera Mouth: no lip lesion, mucus membranes moist Cardiovascular: S1 S2 reg, no murmur, rubs, or gallops Lungs: CTA bilateral, no rales, no accessory muscle use Abdominal: Minimal tenderness to palpation diffusely, most notably in the mid epigastric area Extremities: no gross muscle atrophy, no edema, no contractures Neuro: Alert, Oriented, CNII-XII grossly intact, gait normal Psych: well appearing, appropriate affect Dictation was produced using [employer] dictation software. please excuse any grammatical, word or spelling errors. Byron Lassiter MD PGY-1 IM I saw and evaluated the patient during the amanda and critical portions of this encounter, and discussed the case in detail with the resident author of this note, I agree with the Assessment and Plan, and my changes, if any, are hi ghlighted in blue. Patient Condition at Discharge: Good Plan - Discharge Summary Discharge Rx Participant: No New Discharge Prescriptions: Continue Krill Oil 500mg 1 cap PO DAILY Metoprolol Succinate (ER) [Toprol XL] 50 mg PO PC-SUPPER Aspirin EC [Ecotrin Low Dose] 81 mg PO DAILY Ascorbic Acid [Vitamin C] 1,000 mg PO DAILY metFORMIN HCL [Glucophage] 500 mg PO PC-BID Cyanocobalamin (Vitamin B-12) [Vitamin B-12] 1,000 mcg PO DAILY Atorvastatin [Lipitor] 40 mg PO PC-SUPPER lisinopriL [Zestril] 40 mg PO DAILY Metoprolol Succinate (ER) [Toprol XL] 25 mg PO PC-SUPPER Discontinued Pioglitazone [Actos] 45 mg PO PC-SUPPER Discharge Medication List Ascorbic Acid [Vitamin C] 1,000 mg PO DAILY 08/19/24 [History] Aspirin EC [Ecotrin Low Dose] 81 mg PO DAILY 08/19/24 [History] Atorvastatin [Lipitor] 40 mg PO PC-SUPPER 08/19/24 [History] Cyanocobalamin (Vitamin B-12) [Vitamin B-12] 1,000 mcg PO DAILY 08/19/24 [History] Krill Oil 500mg 1 cap PO DAILY 08/19/24 [History] Metoprolol Succinate (ER) [Toprol XL] 25 mg PO PC-SUPPER 08/19/24 [History] Metoprolol Succinate (ER) [Toprol XL] 50 mg PO PC-SUPPER 08/19/24 [History] lisinopriL [Zestril] 40 mg PO DAILY 08/19/24 [History] metFORMIN HCL [Glucophage] 500 mg PO PC-BID 08/19/24 [History] Follow up Appointment(s)/Referral(s): Fadi Calvert DO [Primary Care Provider] - 1-2 days Patient Instructions/Handouts: Pancreatitis (ED) Discharge Disposition: HOME SELF-CARE
[2024-08-20 12:16] LABS: Glucose,Whole Blood 240 mg/dL (70-110)
[2024-08-20 13:10] VITALS: BP 164/88; PULSE 88; RESP 18
[2024-08-20] MEDS: IBUPROFEN 400 MG TAB PO PRN (15:29)
== END 2024-08-20 16:08 | disposition home or self-care (01) ==
LOC: EC 15:20 → 5NMEDONC 18:06 → INTOOBSV 18:06 → 5NMEDONC 08-20 06:10
PROVIDERS: ADMIT Internal Medicine; ATTEND Internal Medicine
DX: K85.90 Acute pancreatitis without necrosis or infection, unspecified (principal); E11.65 Type 2 diabetes mellitus with hyperglycemia; I10 Essential (primary) hypertension; D64.9 Anemia, unspecified; R80.9 Proteinuria, unspecified; Z79.899 Other long term (current) drug therapy; Z79.82 Long term (current) use of aspirin; Z79.84 Long term (current) use of oral hypoglycemic drugs; Z87.891 Personal history of nicotine dependence
CPT/HCPCS: 96376 ×2; 96372 ×2; 96361 ×2; 96374; 99284; 36415; 80053 ×2; 82150; 83605; 83690 ×2; 85025 ×2; 81003; 74176; G0378; J1171 ×4; J2360; J1650; J1885